=== PATIENT | female | born 1950 | race Two or more races ===

== ENCOUNTER 2020-05-07 10:05 | Outpatient (CLI) | payer MEDICARE, SELFPAY ==
--- NOTE | ~2020-05-07 | MM_ITS ---
EXAMINATION: MM screening andrea BI w anne HISTORY: Screening mammogram TECHNIQUE: Craniocaudal and mediolateral oblique 3-D tomosynthesis images were obtained and synthetic 2-D images were generated. CAD analysis was submitted and interpreted. COMPARISON: 03/19/2019, 03/14/2018, 02/07/2017 bilateral digital screening mammogram examinations BREAST PARENCHYMAL COMPOSITION: There are scattered areas of fibroglandular density. FINDINGS: There are scattered bilateral benign calcifications. There is no evidence of suspicious mas s, calcification, or architectural distortion to suggest malignancy in either breast. There has been no suspicious interval change. IMPRESSION: 1. No mammographic evidence of malignancy. 2. Recommend routine screening mammography in one year. BI-RADS Category 1: Negative Reviewed, dictated and finalized at location B. UP INSPECTOR
== END 2020-05-07 10:06 | disposition home or self-care (01) ==
LOC: ANHIMG 10:08
PROVIDERS: PCP Internal Medicine; Visit Provider Nurse Practitioner
DX: Z12.31 Encounter for screening mammogram for malignant neoplasm of breast (principal)
CPT/HCPCS: 77063; 77067

== ENCOUNTER 2021-12-16 14:44 | Outpatient (CLI) | payer MEDICARE, SELFPAY ==
--- NOTE | ~2021-12-16 | MM_ITS ---
EXAMINATION: MM screening andrea BI w anne HISTORY: Screening TECHNIQUE: Craniocaudal and mediolateral oblique 3-D tomosynthesis images were obtained and synthetic 2-D images were generated. CAD analysis was submitted and interpreted. COMPARISON: No prior mammogram is available for comparison at this institution. BREAST PARENCHYMAL COMPOSITION: There are scattered areas of fibroglandular density. FINDINGS: There is no evidence of suspicious mass, calcification, or architectural distortion to sugg est malignancy in either breast. There has been no suspicious interval change. IMPRESSION: 1. No mammographic evidence of malignancy. 2. Recommend routine screening mammography in one year. BI-RADS Category 1: Negative Reviewed, dictated and finalized at location A.
== END 2021-12-16 14:45 | disposition home or self-care (01) ==
PROVIDERS: PCP Internal Medicine; Visit Provider Obstetrics & Gynecology Gynecology
DX: Z12.31 Encounter for screening mammogram for malignant neoplasm of breast (principal)
CPT/HCPCS: 77063; 77067

== ENCOUNTER 2023-06-09 15:19 | Outpatient (CLI) | payer MEDICARE, SELFPAY ==
--- NOTE | ~2023-06-09 | MM_ITS ---
EXAMINATION: MM screening andrea BI w anne HISTORY: Screening mammogram TECHNIQUE: Craniocaudal and mediolateral oblique 3-D tomosynthesis images were obtained and synthetic 2-D images were generated. CAD analysis was submitted and interpreted. COMPARISON: 12/16/2021, 05/07/2020 bilateral screening mammogram examinations BREAST PARENCHYMAL COMPOSITION: The breasts are almost entirely fatty. FINDINGS: There is no evidence of suspicious mass, calcification, or architectural distortion to sugg est malignancy in either breast. There has been no suspicious interval change. IMPRESSION: 1. No mammographic evidence of malignancy. 2. Recommend routine screening mammography in one year. BI-RADS Category 1: Negative Reviewed, dictated and finalized at location A. MOBILE LIGHTS ASSEMBLER
--- NOTE | ~2023-06-09 | DEXA_ITS ---
Bone Density Report Name: LIZETH WALDEN Age: 72 Sex: Female Ethnicity: White Date of : 1950 Indication: postmenopausal; screening for osteoporosis; height loss; hysterectomy; Referring Provider: JACOB, GRACIELA Study: Bone densitometry was performed. Exam Date: June 09, 2023 Accession number: [id number] Bone Density: Region BMD T-score Z-score Classification AP Spine(L1, L2, L3) 1.129 1.0 3.2 Normal Femoral Neck (Left) 0.806 -0.4 1.5 Normal Total Hip (Left) 1.004 0.5 2.1 Normal Femoral Neck (Right) 0.804 -0.4 1.5 Normal Total Hip (Right) 0.941 0.0 1.6 Normal Total Hip Mean 0.972 0.3 1.9 Normal World Health Organization criteria for BMD impression classify patients as: Normal (T-score at or above -1.0), Osteopenia (T-score between -1.0 and -2.5), or Osteoporosis (T-score at or below -2.5). 10-year Fracture Risk: FRAX not reported because: All T-scores for Spine Total, Hip Total, Femoral Neck at or above -1.0 Previous Exams: Region Exam Age BMD T-score BMD Change BMD Change Date g/cm2 vs Baseline vs Previous AP Spine (L1-L3) 06/09/2023 72 1.129 1.0 0.066 (6.3%)# -0.017 (-1.5%) 02/07/2017 66 1.146 1.2 0.084 (7.9%)# 0.084 (7.9%)# 06/10/2011 60 1.062 0.4 Total Hip(Left) 06/09/2023 72 1.004 0.5 -0.061 (-5.7%) -0.050 (-4.7%) 02/07/2017 66 1.054 0.9 -0.011 (-1.1%) -0.011 (-1.1%) 06/10/2011 60 1.065 1.0 Total Hip(Right) 06/09/2023 72 0.941 0.0 -0.062 (-6.1%) -0.114 (-10.8% 02/07/2017 66 1.055 0.9 0.052 (5.2%)# 0.052 (5.2%)# 06/10/2011 60 1.002 0.5 *Denotes significance at 95% confidence level, LSC for AP Spine = 0.022 g/cm2, LSC for Total Hip = 0.027 g/cm2 # Denotes dissimilar scan types or analysis methods Clinical Information Provided by Patient: Has used the following medications: Fosamax (i.e. alendronate), Prolia (i.e. denosumab) Has the following medical conditions: Hysterectomy Patient maximum height was 62.0 Menopause Age: 46 Drinks caffeinated beverages Onset of menses at age 9 Number of children 4 Impression: The patient has normal bone mass. The BMD for the Total Hip(Left) decreased, changing by -4.7% since the last DXA exam. The BMD for the Total Hip(Right) decreased, changing by -10.8% since the last DXA exam. Discussion: BONE DENSITY IS ABOVE THE MINIMUM DESIRABLE LEVEL AT ALL SKELETAL SITES TESTED. This patient?s bone mineral den
== END 2023-06-09 15:20 | disposition home or self-care (01) ==
LOC: ANHIMG 15:20
PROVIDERS: PCP Nurse Practitioner; Visit Provider Nurse Practitioner
DX: Z12.31 Encounter for screening mammogram for malignant neoplasm of breast (principal); Z78.0 Asymptomatic menopausal state
CPT/HCPCS: 77063; 77067; 77080

== ENCOUNTER 2024-09-10 15:17 | Outpatient (CLI) | payer MEDICARE, SELFPAY ==
--- NOTE | ~2024-09-10 | MM_ITS ---
EXAMINATION: MM screening [facility] w [facility] HISTORY: Screening TECHNIQUE: Craniocaudal and mediolateral oblique 3-D tomosynthesis images were obtained and synthetic 2-D images were generated. CAD analysis was submitted and interpreted. COMPARISON: 06/09/2023 and dating back to 03/19/2019 BREAST PARENCHYMAL COMPOSITION: There are scattered areas of fibroglandular density. FINDINGS: Punctate calcifications are detected bilaterally, stable and benign in appearance. Stable parenchymal pattern without suspicious microcalcifications, architectural distortion, discrete masses or significant asymmetry. IMPRESSION: 1. No mammographic evidence of malignancy. 2. Recommend routine screening mammography in one year. BI-RADS Category 2: Benign finding(s). Reviewed, dictated and finalized at location A.
--- OUTSIDE RECORDS SUMMARY | 2024-09-10 18:08 | XMS_ITS | Encounter Summary ---
Author Organization [facility] Address [address] [place] [address] Care Team Providers Care Medical Receptionist Assistant Name Role Phone Dirk Bagley MD Primary Care Provider [phone] Speedy Fall MD Unavailable Norma Caputo Primary Care Provider Reason for Visit * Reason Onset Date Comments MEDICATION REFILL 12/21/2020 Encounter Details Date Type Department Care Team (Late st Contact Info) Description 12/21/2020 Refill [facility] [address] [place] [address], [place] [phone] Nhi Hairston MD [address] [place] [address] [place] [address] MEDICATION REFILL Social History Tobacco Use Types Packs/Day Years Used Date Smoking Tobacco: Never Smokeless Tobacco: Never Alcohol Use Standard Drinks/Week Comments Yes 1 (1 standard drink = 0.6 oz pur e alcohol) PHQ-2 Answer Date Recorded PHQ2 TOTAL SCORE 0 12/08/2020 Sex and Gender Information Value Date Recorded Sex Assigned at Not on file Gender Identity Not on file Sexual Orientation Not on file Travel History Travel Start Travel End [place] 08/03/2024 08/22/2024 COVID-19 Exposure Response Date Recorded In the last month, have you been in contact with someone who was confirmed or suspected to have Coronavirus / COVID-19? No / Unsure 11/28/2020 10:53 AM CDT documented as of this encounter Functional Status Functional Status Response Date of Assess ment Is person deaf or have serious hearing difficult y? No 09/04/2020 Is person blind or have serious difficulty seein g? No 09/04/2020 Does person have serious dif ficulty walking/climbing stairs? No 09/04/2020 Does person have difficulty dressing/bathing? No 09/04/2020 Does person have difficulty doing errands alone? No 09/04/2020 Cognitive Status Response Date of Assessm ent Does person have difficulty concentrating/remembering/making decisions? No 09/04/2020 documented as of this encounter Miscellaneous Notes * Telephone Encounter - Salima Storm - 12/23/2020 9:47 AM CDT Refill Request Aspen Yuan DONAVAN: 12.08.20Apr due: 04.20.21Apr scheduled: 04/20/2021 LRF: 7..21 Qty Disp: 180 # of refills: 1 Allergies: Allergies Allergen Reactions ??? Meperidine Nausea and/or Vomiting Reaction not listed. ??? Sulfa Drugs Urticaria ??? Hydroxychloroquine Sulfate Rash ??? Hymenoptera Venom Preparations Other Swell horribly until steroid ??? [place] Bark [Quercus Robur] Rhinitis ??? Adhesive Sensitivity Skin Reactions Vasquez my skin, takes my top skin off ??? Grass Extracts [Gramineae Pollens] Other Skin test ??? Mold Extract [Trichophyton] Other Skin test Pended Medication Order: Requested Prescriptions Pending Prescriptions Disp Refills ??? traMADol (ULTRAM) 50 MG tablet 180 tablet 1 Sig: documented in this encounter Plan of Treatment Upcoming Encounters Date Type Department Care Team (Late st Contact Info) Description 10/01/2024 11:40 AM CDT Office Visit [facility] - Rheumatology [address] [place] [address], [place] [phone] Gavin Thorne MD [facility] [place] [address] 03/19/2025 8:45 AM CDT Appointment [facility] [address] [place] [phone] Speedy Fall MD [address] [place] [phone] 03/19/2025 10:00 AM CDT Office Visit [facility] - [address] [place] [address] Speedy Fall MD [address] [place] [phone] documented as of this encounter Goals Goal Patient Goal Type Associated Problems Recent Progress Patient-Stated? Author Medication Management General On track( 025 9:22 AM CDT) No Lissett Thorne, DIANNA Note: Expected end date: Ongoing Interventions: Take all medications as prescribed Let your doctor know right away about any changes in your medications Make sure to request a refill of your medication at least one week prior to your last dose Safety General On track( 024 9:40 AM CDT) No Adri Heredia, RN Note: Expected end date: ongoing Interventions: Your nurse will assess your risk for falls/injury each visit documented as of this encounter Visit Diagnoses Diagnosis Psoriatic arthritis (HCC) Psoriatic arthropathy Arthralgia, unspecified joint documented in this encounter Care Teams Medical Receptionist Assistant Relationship Specialty Start Date End Date Dirk Bagley MD [address] [place] [address] PCP - General Family Medicine 02/08/23 03/05/24 Norma Caputo [address] [place] [address] PCP - General 03/06/24 Speedy Fall MD [address] [place] [address] Box Printing Machine Operator Gastroenterology 09/08/23 documented as of this encounter
--- OUTSIDE RECORDS SUMMARY | 2024-09-10 18:08 | XMS_ITS | Encounter Summary ---
Author Organization [facility] Address [address] [place] [address] Care Team Providers Care Rail Car Repairer Name Role Phone Malcolm Dugan MD Primary Care Provider [phone] Encounter Details Date Type Department Care Team (Late st Contact Info) Description 10/29/2002 Outpatient Historical [facility] (Adt Cardiology-[facility]) [address] [place] [address] Luis Mujica Social History Tobacco Use Types Packs/Day Years Used Date Smoking Tobacco: Never Assessed Comments Unknown Sex and Gender Information Value Date Recorded Sex Assigned at Not on file Legal Sex Female 3:11 AM MANAGER BODY Gender Identity Not on file Sexual Orientation Not on file documented as of this encounter Plan of Treatment Not on file documented as of this encounter Visit Diagnoses Not on filedocumented in this encounter Care Teams Rail Car Repairer Relationship Specialty Start Date End Date Malcolm Dugan MD [address] [place] [address] PCP - General 08/01/02 documented as of this encounter
--- OUTSIDE RECORDS SUMMARY | 2024-09-10 18:08 | XMS_ITS | Encounter Summary ---
Author Organization [facility] Address [address] [place] [address] Care Team Providers Care Can Bander Operator Name Role Phone Dirk Bagley MD Primary Care Provider Speedy Fall MD Unavailable [phone] Norma Caputo Primary Care Provider [phone] Reason for Visit * Reason Onset Date Comments MEDICATION REFILL 03/12/2020 Encounter Details Date Type Department Care Team (Late st Contact Info) Description 03/12/2020 Refill [facility] [address] [place] [address] Nhi Hairston MD [address] [place] [address] MEDICATION REFILL Social History Tobacco Use Types Packs/Day Years Used Date Smoking Tobacco: Never Smokeless Tobacco: Never Alcohol Use Standard Drinks/Week Comments Yes 7 (1 standard drink = 0.6 oz pur e alcohol) 1 oz of vodka a day Sex and Gender Information Value Date Recorded Sex Assigned at Not on file Gender Identity Not on file Sexual Orientation Not on file Travel History Travel Start Travel End [place] 08/03/2024 08/22/2024 documented as of this encounter Miscellaneous Notes * Telephone Encounter - Salima Storm - 03/12/2020 11:25 AM CDT Refill Request Aspen Yuan DONAVAN: 11.21.19 NOV due: 03.26.20 LRF: 02.11.20 Qty Disp: 180 tabs # of refills: 0 Allergies: Allergies Allergen Reactions ??? Meperidine Nausea and/or Vomiting Reaction not listed. ??? Sulfa Drugs Urticaria ??? Hydroxychloroquine Sulfate Rash ??? Hymenoptera Venom Preparations Other Swell horribly until steroid ??? [place] Bark [Quercus Robur] Rhinitis ??? Adhesive Sensitivity Skin Reactions Vasquez my skin, takes my top skin off ??? Grass Extracts [Gramineae Pollens] Other Skin test ??? Mold Extract [Trichophyton] Other Skin test Pended Medication Order: Requested Prescriptions Pending Prescriptions Disp Refills ??? traMADol (ULTRAM) 50 MG tablet 180 tablet 0 documented in this encounter Plan of Treatment Upcoming Encounters Date Type Department Care Team (Late st Contact Info) Description 10/01/2024 11:40 AM CDT Office Visit [facility] - Rheumatology [address] [place] [phone] Gavin Thorne MD [address] [place] [phone] 03/19/2025 8:45 AM CDT Appointment [facility] [address] [place] [phone] Speedy Fall MD [address] [place] [phone] 03/19/2025 10:00 AM CDT Office Visit [facility] [address] [place] [address] [place] [phone] Speedy Fall MD [address] [place] [phone] documented as of this encounter Goals Goal Patient Goal Type Associated Problems Recent Progress Patient-Stated? Author Medication Management General On track( 025 9:22 AM CDT) Lissett Langston, RN Note: Expected end date: Ongoing Interventions: Take all medications as prescribed Let your doctor know right away about any changes in your medications Make sure to request a refill of your medication at least one week prior to your last dose documented as of this encounter Visit Diagnoses Diagnosis Psoriatic arthritis (HCC) Psoriatic arthropathy Arthralgia, unspecified joint documented in this encounter Care Teams Can Bander Operator Relationship Specialty Start Date End Date Dirk Bagley MD [address] [place] [address] PCP - General Family Medicine 02/08/23 03/05/24 Norma [facility] [place] [address] PCP - General 03/06/24 Speedy Fall MD [address] [place] [address] Manager Of Housekeeping Gastroenterology 09/08/23 documented as of this encounter
--- OUTSIDE RECORDS SUMMARY | 2024-09-10 18:08 | XMS_ITS | Encounter Summary ---
Author Organization [facility] Address [address] [facility] [place] [address] Care Team Providers Care Mat Man Name Role Phone Dirk Bagley MD Primary Care Provider [phone] Speedy Fall MD Unavailable [phone] Norma Caputo Primary Care Provider [phone] Reason for Visit * Reason Onset Date Comments MEDICATION REFILL 02/26/2021 Encounter Details Date Type Department Care Team (Late st Contact Info) Description 02/26/2021 Refill [facility] [address] [place] [address], [place] [phone] Nhi Hairston MD [address] [place] [address] [place] [address] MEDICATION REFILL Social History Tobacco Use Types [...] file Travel History Travel Start Travel End [place] 08/03/2024 08/22/2024 COVID-19 Exposure Response Date Recorded In the last month, have you been in contact with someone who was confirmed or suspected to have Coronavirus / COVID-19? No / Unsure 01/30/2021 9:05 AM CDT documented as of this encounter Functional Status Functional Status Response Date of Assess ment Is person deaf or have serious hearing difficult y? No 02/26/2021 Is person blind or have serious difficulty seein g? No 02/26/2021 Does person have serious dif ficulty walking/climbing stairs? No 02/26/2021 Does person have difficulty dressing/bathing? No 02/26/2021 Does person have difficulty doing errands alone? No 02/26/2021 Cognitive Status Response Date of Assessm ent Does person have difficulty concentrating/remembering/making decisions? No 02/26/2021 documented as of this encounter Miscellaneous Notes * Telephone Encounter - Salima Storm - 02/27/2021 11:38 AM CDT Refill Request Aspen Yuan DONAVAN: 12/08/2020Apr due: 04/20/2021Apr scheduled: 04/20/2021 LRF: 02/27/2021 Qty Disp: 4 mL # of refills: 2 Allergies: Allergies Allergen Reactions ??? Meperidine Nausea and/or Vomiting Reaction not listed. ??? Sulfa Drugs Urticaria ??? Hydroxychloroquine Sulfate Rash ??? Hymenoptera Venom Preparations Other Swell horribly until steroid ??? [place] Bark [Quercus Robur] Rhinitis ??? Adhesive Sensitivity Skin Reactions Vasquez my skin, takes my top skin off ??? Grass Extracts [Gramineae Pollens] Other Skin test ??? Mold Extract [Trichophyton] Other Skin test Pended Medication Order: Requested Prescriptions Pending Prescriptions Disp Refills ??? Secukinumab, 300 MG Dose, (COSENTYX, 300 MG DOSE,) 150 MG/ML SOSY 2 mL 2 ??? Secukinumab, 300 MG Dose, (COSENTYX, 300 MG DOSE,) 150 MG/ML SOSY 4 mL 2 documented in this encounter Plan of Treatment Upcoming Encounters Date Type Department Care Team (Late st Contact Info) Description 10/01/2024 11:40 AM CDT Office Visit [facility] - Rheumatology [address] [place] [address], [place] [address] Gavin Thorne MD [address] [place] [phone] 03/19/2025 8:45 AM CDT Appointment [facility] [address] [place] [phone] Speedy Fall MD [address] [place] [phone] 03/19/2025 10:00 AM CDT Office Visit [facility] - GI [address] [place] [address], [place] [phone] Speedy Fall MD [address] [place] [phone] documented as of this encounter Goals Goal Patient Goal Type Associated Problems Recent Progress Patient-Stated? Author Medication Management General On track( 025 9:22 AM CDT) No Lissett Thorne, RN Note: Expected end date: Ongoing Interventions: Take all medications as prescribed Let your doctor know right away about any changes in your medications Make sure to request a refill of your medication at least one week prior to your last dose Safety General On track( 024 9:40 AM CDT) No Adri Heredia, DIANNA Note: Expected end date: ongoing Interventions: Your nurse will assess your risk for falls/injury each visit documented as of this encounter Visit Diagnoses Not on filedocumented in this encounter Care Teams Mat Man Relationship Specialty Start Date End Date Dirk Bagley MD [address] [place] [address] PCP - General Family Medicine 02/08/23 03/05/24 Norma Caputo [address] [place] [address] PCP - General 03/06/24 Speedy Fall MD [address] [place] [phone] Community Education Coordinator Gastroenterology 09/08/23 documented as of this encounter
--- OUTSIDE RECORDS SUMMARY | 2024-09-10 18:08 | XMS_ITS | Encounter Summary ---
Author Organization [facility] Health Address [address] [facility] [place] [address] Care Team Providers Care Shingle Bolt Cutter Name Role Phone Speedy Fall MD Unavailable [phone] Norma Caputo Primary Care Provider [phone] Encounter Details Date Type Department Care Team (Late st Contact Info) Description 08/31/2024 Orders Only [facility] [address] [facility], [place] [address] Speedy Fall MD [address] [place] [address] Cirrhosis of liver without ascites, unspecified hepatic cirrhosis type Social History Tobacco Use Types Packs/Day Years Used Date Smoking Tobacco: Never Smokeless Tobacco: Never Alcohol Use Standard Drinks/Week Comments Not Currently 1 (1 standard drink = 0.6 oz pur e alcohol) occas PHQ-2 Answer Date Recorded PHQ2 TOTAL SCORE 0 01/06/2023 Sex and Gender Information Value Date Recorded Sex Assigned at Not on file Gender Identity Not on file Sexual Orientation Not on file Travel History Travel Start Travel End [place] 08/03/2024 08/22/2024 documented as of this encounter Functional Status [...] No 02/26/2021 documented as of this encounter Plan of Treatment Upcoming Encounters Date Type Department Care Team (Late st Contact Info) Description 10/01/2024 11:40 AM CDT Office Visit [facility] - Rheumatology [address] [place] [phone] Gavin Thorne MD [address] [place] [phone] 03/19/2025 8:45 AM CDT Appointment [facility] [address] [place] [phone] Speedy Fall MD [address] [place] [phone] 03/19/2025 10:00 AM CDT Office Visit [facility] [address] [place] [phone] Speedy Fall MD [address] [place] [phone] documented as of this encounter Goals Goal [...] track( 024 9:40 AM CDT) No Adri Heredia RN Note: Expected end date: ongoing Interventions: Your nurse will assess your risk for falls/injury each visit documented as of this encounter Procedures Procedure Name Priority Date/Time Associated Diagnosis Comments ALPHA FETOPROTEIN BLOOD TUMOR MARKER Routine 08/31/2024 12:23 PM CDT Cirrhosis of liver without ascites, unspecified hepatic cirrhosis type CBC W AUTO DIFFERENTIAL Routine 08/31/2024 12:23 PM CDT Cirrhosis of liver without ascites, unspecified hepatic cirrhosis type COMPREHENSIVE METABOLIC PANEL Routine 08/31/2024 12:23 PM CDT Cirrhosis of liver without ascites, unspecified hepatic cirrhosis type BILIRUBIN DIRECT Routine 08/31/2024 12:2 3 PM CDT Cirrhosis of liver without ascites, unspecified hepatic cirrhosis type PT-INR Routine 08/31/2024 12:21 PM CDT Cirrhosis of liver without ascites, unspecified hepatic cirrhosis type documented in this encounter Results * ALPHA FETOPROTEIN BLOOD TUMOR MARKER (08/31/2024 12:23 PM CDT) Alpha-Fetoprotei n Tumor Marker 4.1 ng/mL [facility] Comment: Reference Range: <6.1 The use of AFP as a tumor marker in females is not recommended. This test was performed using the Ashlyn Lavaca chemiluminescent method. Values obtained from different assay methods cannot be used interchangeably. AFP levels, regardless of value, should not be interpreted as absolute evidence of the presence or absence of disease. REPORT COMMENT: FASTING:NO Test Performed at: [facility] [place] [address] [place] [id number] SCHUYLER GOMEZ Blood BLOOD SPECIMEN / Unknown 08/31/2024 12:23 PM CDT 08/31/2024 12:23 PM CDT Speedy Fall MD LAB - CHEMISTRY [place]DE [place] [address] [address] * BILIRUBIN DIRECT (08/31/2024 12:23 PM CDT) Pathologist [facility] Bilirubin Direct 0.1 < OR = 0.2 mg/dL [facility] Comment: Test Performed at: [email or web address] [address] CALLIE VENTURA MD Blood BLOOD SPECIMEN / Unknown 08/31/2024 12:23 PM CDT 08/31/2024 12:23 PM CDT Speedy Fall MD LAB - CHEMISTRY ORDE [place] Performing Organization Address City/[facility] Co de Phone Number [address] [address] * (ABNORMAL) COMPREHENSIVE METABOLIC PANEL (08/31/2024 12:23 PM CDT) Pathologist [facility] Glucose 255(H) 65 - 139 mg/dL [facility] Comment: Non-fasting reference interval BUN 25 7 - 25 mg/dL [facility] Creatinine 1.16(H) 0.60 - 1.00 mg/dL [facility] eGFR by Cystatin C 50(L) > OR = 60 mL/min/1. 73m2 [facility] BUN/Creatinine Ratio 22 6 - 22 (calc) [facility] Sodium 137 135 - 146 mmol/L [facility] Potassium 4.5 3.5 - 5.3 mmol/L [facility] Chloride 102 98 - 110 mmol/L [facility] CO2 27 20 - 32 mmol/L [facility] Calcium 10.0 8.6 - 10.4 mg/dL [facility] Protein Total 7.0 6.1 - 8.1 g/dL [facility] Albumin 4.5 3.6 - 5.1 g/dL [facility] Globulin Total 2.5 1.9 - 3.7 g/dL (calc) [facility] Albumin/Globulin Ratio 1.8 1.0 - 2.5 (calc) [facility] Bilirubin Total 0.6 0.2 - 1.2 mg/dL [facility] Alkaline Phosphatase 54 37 - 153 U/L [facility] AST 36(H) 10 - 35 U/L [facility] ALT 29 6 - 29 U/L [facility] Comment: Test Performed at: [email or web address] [address] CALLIE VENTURA MD Blood BLOOD SPECIMEN / Unknown 08/31/2024 12:23 PM CDT 08/31/2024 12:23 PM CDT Speedy Fall MD LAB - CHEMISTRY JOESPH [facility] Organization Address City/State/ZIP Co de Phone Number [address] [address] * (ABNORMAL) CBC WITH DIFFERENTIAL (08/31/2024 12:23 PM CDT) White Blood Cell Count 4.4 3.8 - 10.8 Thousand/ uL [facility] RBC 4.13 3.80 - 5.10 Million/u L [facility] Hemoglobin 13.8 11.7 - 15.5 g/dL [facility] Hematocrit 42.6 35.0 - 45.0 % [facility] MCV 103.1(H) 80.0 - 100.0 fL [facility] MCH 33.4(H) 27.0 - 33.0 pg [facility] MCHC 32.4 32.0 - 36.0 g/dL [facility] Comment: For adults, a slight decrease in the calculated MCHC value (in the range of 30 to 32 g/dL) is most likely not clinically significant; however, it should be interpreted with caution in correlation with other red cell parameters and the patient's clinical condition. RDW 12.3 11.0 - 15.0 % [facility] Platelet Count 193 140 - 400 Thousand/ uL [facility] MPV 10.5 7.5 - 12.5 fL [facility] Neutrophil Absolute 2156 1500 - 7800 cells/uL [facility] Lymphocytes Absolute 1615 850 - 3900 cells/uL [facility] Absolute Monocytes 370 200 - 950 cells/uL [facility] Eosinophils Absolute 229 15 - 500 cells/uL [facility] Basophils Absolute 31 0 - 200 cells/uL [facility] Granulocytes % 49 % [facility] Lymphocytes % 36.7 % [facility] Monocytes % 8.4 % [facility] Eosinophils % 5.2 % [facility] Basophils % 0.7 % [facility] Comment: Test Performed at: [email or web address] [address] CALLIE VENTURA MD Blood BLOOD SPECIMEN / Unknown 08/31/2024 12:23 PM CDT 08/31/2024 12:23 PM CDT Speedy Fall MD LAB - HEMATOLOGY ORD ERABLES Performing Organization Address [facility] Co de Phone Number [address] [address] * (ABNORMAL) PT-INR (08/31/2024 12:21 PM CDT) INR 1.1 [facility] Comment: Reference Range 0.9-1.1 Moderate-intensity Warfarin Therapy 2.0-3.0 Higher-intensity Warfarin Therapy 3.0-4.0 PT 12.1(H) 9.0 - 11.5 sec [facility] Comment: For additional information, please refer to http://education.TeaMobi/faq/OXD681 (This link is being provided for informational/ educational purposes only.) REPORT COMMENT: FASTING:NO Test Performed at: [email or web address] [address] CALLIE VENTURA MD Blood BLOOD SPECIMEN / Unknown 08/31/2024 12:21 PM CDT 08/31/2024 12:22 PM CDT Speedy Fall MD LAB - COAGULATION OR DERABLES Performing Organization Address [facility] Co de Phone Number [address] [address] documented in this encounter Visit Diagnoses Diagnosis Cirrhosis of liver without ascites, unspecified hepatic cirrhosis type (HCC) documented in this encounter Care Teams Shingle Bolt Cutter Relationship Specialty Start Date End Date Norma Caputo [facility] [place] [address] PCP - General 03/06/24 Speedy Fall MD [address] [place] [address] Lithograph Press Feeder Gastroenterology 09/08/23 documented as of this encounter
--- OUTSIDE RECORDS SUMMARY | 2024-09-10 18:08 | XMS_ITS | Encounter Summary ---
Author Organization [facility] Health Address [address] [facility] [place] [address] Care Team Providers Care Family Support Specialist Name Role Phone Dirk Bagley MD Primary Care Provider [phone] Speedy Fall MD Unavailable [phone] Norma Caputo Primary Care Provider [phone] Reason for Visit * Reason Onset Date Comments MEDICATION REFILL 10/27/2023 Encounter Details Date Type Department Care Team (Late st Contact Info) Description 10/27/2023 Refill [facility] - Rheumatology [address] [place] [address], [place] [address] Gavin Thorne MD [address] [place] [phone] MEDICATION REFILL Social History Tobacco Use Types [...] file Travel History Travel Start Travel End [place] 08/03/2024 08/22/2024 documented as of this encounter [...] encounter Miscellaneous Notes * Telephone Encounter - Issa Costa LPN - 10/28/2023 9:54 AM CDT Refill Request Aspen Yuan DONAVAN: 09/15/2023 NOV due: NOV scheduled: 03/05/2024 LRF: 01/06/2023 Qty Disp: 360 # of refills: 3 Allergies: Allergies Allergen Reactions Meperidine Nausea and/or Vomiting Reaction not listed. Sulfa Drugs Urticaria Hydroxychloroquine Sulfate Rash Hymenoptera Venom Preparations Other Swell horribly until steroid [place] Bark [Quercus Robur] Rhinitis Adhesive Sensitivity Skin Reactions Vasquez my skin, takes my top skin off Grass Extracts [Gramineae Pollens] Other Skin test Mold Extract [Trichophyton] Other Skin test Pended Medication Order: Requested Prescriptions Pending Prescriptions Disp Refills cetirizine (ZyrTEC) 10 MG tablet 360 tablet 3 Sig: Take 2 (two) tablets by mouth 2 times daily \ documented in this encounter Plan of Treatment Upcoming Encounters Date Type Department Care Team (Late st Contact Info) Description 10/01/2024 11:40 AM CDT Office Visit [facility] - Rheumatology [address] [place] [address], [facility] [place] [phone] Gavin Thorne MD [address] [place] [phone] 03/19/2025 8:45 AM CDT Appointment [facility] [address] [place] [address] Speedy Fall MD [address] [place] [phone] 03/19/2025 10:00 AM CDT Office Visit [facility] - [address] [facility], [place] [address] Speedy Fall MD [address] [place] [phone] documented as of this encounter Goals [...] on filedocumented in this encounter Care Teams Family Support Specialist Relationship Specialty Start Date End Date Dirk Bagley MD [address] [place] [address] PCP - General Family Medicine 02/08/23 03/05/24 Norma Caputo [address] [place] [address] PCP - General 03/06/24 [place] [address] [place] [phone] Orthopedic Surgeon Gastroenterology 09/08/23 documented as of this encounter
--- OUTSIDE RECORDS SUMMARY | 2024-09-10 18:08 | XMS_ITS | Encounter Summary ---
Author Organization [facility] Health Address [address] [place] [address] Care Team Providers Care Washery Boss Name Role Phone Dirk Bagley MD Primary Care Provider [phone] Speedy Fall MD Unavailable [phone] Norma Caputo Primary Care Provider [phone] Reason for Visit * Reason Onset Date Comments MEDICATION REFILL 02/12/2021 Encounter Details Date Type Department Care Team (Late st Contact Info) Description 02/12/2021 Refill [facility] [address] [place] [address], [place] [phone] Nhi Hairston MD [address] [place] [address] [place] [address] MEDICATION REFILL Social History Tobacco Use Types [...] file Travel History Travel Start Travel End [place] 08/03/2024 08/22/2024 COVID-19 Exposure Response Date Recorded [...] * Telephone Encounter - Salima Storm - 02/16/2021 8:58 AM CDT Refill Request Aspen Yuan DONAVAN: 12.08.20Apr due: 04.20.21Apr scheduled: 04/20/2021 LRF: 02.12.21 Qty Disp: 180 # of refills: 1 Allergies: Allergies Allergen Reactions ??? Meperidine Nausea and/or Vomiting Reaction not listed. ??? Sulfa Drugs Urticaria ??? Hydroxychloroquine Sulfate Rash ??? Hymenoptera Venom Preparations Other Swell horribly until steroid ??? [place] Bark [Quercus Robur] Rhinitis ??? Adhesive Sensitivity Skin Reactions Vasquez my skin, takes my top skin off ??? Grass Extracts [Gramineae Pollens] Other Skin test ??? Mold Extract [Trichophyton] Other Skin test Pended Medication Order: Requested Prescriptions Pending Prescriptions Disp Refills ??? traMADol (ULTRAM) 50 MG tablet 90 tablet 2 Sig: Take 1 (one) tablet by mouth every 6 hours as needed TAKE 1 TO 2 TABLETS BY MOUTH THREE TIMES DAILY NEEDED documented in this encounter Plan of Treatment Upcoming Encounters Date Type Department Care Team (Late st Contact Info) Description 10/01/2024 11:40 AM CDT Office Visit [facility] - Rheumatology [address] [place] [address], [place] [phone] Gavin Thorne MD [address] [place] [phone] 03/19/2025 8:45 AM CDT Appointment [facility] [address] [place] [phone] Speedy Fall MD [address] [place] [phone] 03/19/2025 10:00 AM CDT Office Visit [facility] [address] [place] [address], [place] [phone] Speedy Fall MD [address] [place] [phone] documented as of this encounter Goals [...] joint documented in this encounter Care Teams Washery Boss Relationship Specialty Start Date End Date Dirk Bagley MD [address] [place] [address] PCP - General Family Medicine 02/08/23 03/05/24 Norma Caputo [address] [place] [address] PCP - General 03/06/24 Speedy Fall MD [address] [place] [address] Biofuels Operations Manager Gastroenterology 09/08/23 documented as of this encounter
--- OUTSIDE RECORDS SUMMARY | 2024-09-10 18:08 | XMS_ITS | Encounter Summary ---
Author Organization [facility] Address [address] [place] [address] Care Team Providers Care Manager Army Name Role Phone Malcolm Dugan MD Primary Care Provider [phone] Encounter Details Date Type Department Care Team (Latest Contact Info) Description 07/17/2002 Outpatient Historical [facility], [address] [place] [address] [place] [address] POLYCYTHEMIA VERA (CMS/HCC) (Primary Dx) Social History Tobacco Use Types Packs/Day Years Used Date Smoking Tobacco: Never Assessed Comments Unknown Sex and Gender Information Value Date Recorded Sex Assigned at Not on file Legal Sex Female 3:11 AM LOGISTICS ACCOUNT MANAGER Gender Identity Not on file Sexual Orientation Not on file documented as of this encounter Plan of Treatment Not on file documented as of this encounter Visit Diagnoses Diagnosis Polycythemia vera(238.4) (CMS/HCC)- Primary Polycythemia vera documented in this encounter Care Teams Manager Army Relationship Specialty Start Date End Date Malcolm Dugan MD [address] [address] PCP - General 08/01/02 documented as of this encounter
--- OUTSIDE RECORDS SUMMARY | 2024-09-10 18:08 | XMS_ITS | Encounter Summary ---
Author Organization [facility] Health Address [address] [facility] [address] Care Team Providers Care Feed Project Engineer Name Role Phone Dirk Bagley MD Primary Care Provider [phone] Speedy Fall MD Unavailable [phone] Norma Caputo Primary Care Provider [phone] Reason for Visit * Reason Onset Date Comments MEDICATION REFILL 04/06/2022 Encounter Details Date Type Department Care Team (Late st Contact Info) Description 04/06/2022 Refill [facility] [address] [facility], [place] [phone] Mychart, Generic Provider MEDICATION REFILL Social History Tobacco Use Types [...] file Travel History Travel Start Travel End [place] 08/03/2024 08/22/2024 documented as of this encounter [...] Description 10/01/2024 11:40 AM CDT Office Visit [facility] - Rheumatology [address] [place] [phone] Gavin Thorne MD [address] [place] [phone] 03/19/2025 8:45 AM CDT Appointment [facility] [address] [place] [phone] Speedy Fall MD [address] [place] [phone] 03/19/2025 10:00 AM CDT Office Visit [facility] [address] [place] [address] [place] [phone] Speedy Fall MD [address] [place] [phone] documented as of this encounter Goals Goal [...] On track( 024 9:40 AM CDT) No Kyleep, Adri R, RN Note: Expected end date: ongoing Interventions: Your nurse will assess your risk for falls/injury each visit documented as of this encounter Visit Diagnoses Diagnosis Fibromyalgia Mylagia and myositis, unspecified documented in this encounter Care Teams Feed Project Engineer Relationship Specialty Start Date End Date Dirk Bagley MD [address] [place] [address] PCP - General Family Medicine 02/08/23 03/05/24 Norma Caputo [address] [place] [address] PCP - General 03/06/24 Speedy Fall MD [address] [place] [address] Plate Maker Zinc Gastroenterology 09/08/23 documented as of this encounter
--- OUTSIDE RECORDS SUMMARY | 2024-09-10 18:08 | XMS_ITS | Encounter Summary ---
Author Organization [facility] Health Address [address] [facility] [place] [address] Care Team Providers Care Oxygen System Tester Name Role Phone Dirk Bagley MD Primary Care Provider [phone] Speedy Fall MD Unavailable Norma Caputo Primary Care Provider [phone] Reason for Visit * Reason Onset Date Comments MEDICATION REFILL 06/16/2021 Encounter Details Date Type Department Care Team (Late st Contact Info) Description 06/16/2021 Refill [facility] [address] [place] [address], [place] [phone] Nhi Hairston MD [address] [place] [address] [place] [address] MEDICATION REFILL Social History Tobacco Use Types [...] file Travel History Travel Start Travel End [place] 08/03/2024 08/22/2024 documented as of this encounter [...] * Telephone Encounter - Salima Storm - 06/16/2021 4:16 PM CST Refill Request Aspen Yuan DONAVAN: 04.20.21Apr due: 08.18.21Apr scheduled: 08/18/2021 LRF: 06.16.21 Qty Disp: 180 # of refills: 1 Allergies: Allergies Allergen Reactions ??? Meperidine Nausea and/or Vomiting Reaction not listed. ??? Sulfa Drugs Urticaria ??? Hydroxychloroquine Sulfate Rash ??? Hymenoptera Venom Preparations Other Swell horribly until steroid ??? [place] Bark [Quercus Robur] Rhinitis ??? Adhesive Sensitivity Skin Reactions Vasquez my skin, takes my top skin off ??? Grass Extracts [Gramineae Pollens] Other Skin test ??? Mold Extract [Trichophyton] Other Skin test Pended Medication Order: Requested Prescriptions Pending Prescriptions Disp Refills ??? traMADol (ULTRAM) 50 MG tablet 180 tablet 1 CAL RECORD ADMINISTRATOR documented in this encounter Plan of Treatment Upcoming Encounters Date Type Department Care Team (Late st Contact Info) Description 10/01/2024 11:40 AM CDT Office Visit [facility] - Rheumatology [address] [place] [address], [place] [address] Gavin Thorne MD [address] [place] [phone] 03/19/2025 8:45 AM CDT Appointment [facility] [address] [place] [address] Speedy Fall MD [address] [place] [phone] 03/19/2025 10:00 AM CDT Office Visit [facility] - [address] [facility], [place] [address] Speedy Fall MD [address] [place] [address] documented as of this encounter Goals [...] joint documented in this encounter Care Teams Oxygen System Tester Relationship Specialty Start Date End Date Dirk Bagley MD [address] [place] [address] PCP - General Family Medicine 02/08/23 03/05/24 Norma Caputo [address] [place] [address] PCP - General 03/06/24 Speedy Fall MD [address] [place] [address] Director Of Public Relations Gastroenterology 09/08/23 documented as of this encounter
--- OUTSIDE RECORDS SUMMARY | 2024-09-10 18:08 | XMS_ITS | Encounter Summary ---
Author Organization [facility] Health Address [address] [facility] [place] [address] Care Team Providers Care Rn Correctional Name Role Phone Dirk Bagley MD Primary Care Provider Speedy Fall MD Unavailable Norma Caputo Primary Care Provider [phone] Reason for Visit * Reason Onset Date Comments MEDICATION REFILL 11/05/2021 Encounter Details Date Type Department Care Team (Late st Contact Info) Description 11/05/2021 Refill [facility] [address] [place] [address], [place] [phone] Nhi Hairston MD [address] [place] [address] [place] [address] MEDICATION REFILL Social History Tobacco Use Types [...] file Travel History Travel Start Travel End [place] 08/03/2024 08/22/2024 documented as of this encounter [...] * Telephone Encounter - Salima Storm - 11/05/2021 3:21 PM CDT Its been put in * Telephone Encounter - Salima Storm - 11/05/2021 3:19 PM CDT Refill Request Aspen Yuan DONAVAN: APR due: NOV scheduled: 12/29/2021 LRF: Drey Disp: # of refills: Allergies: Allergies Allergen Reactions Meperidine Nausea and/or Vomiting Reaction not listed. Sulfa Drugs Urticaria Hydroxychloroquine Sulfate Rash Hymenoptera Venom Preparations Other Swell horribly until steroid [place] Bark [Quercus Robur] Rhinitis Adhesive Sensitivity Skin Reactions Vasquez my skin, takes my top skin off Grass Extracts [Gramineae Pollens] Other Skin test Mold Extract [Trichophyton] Other Skin test Pended Medication Order: Requested Prescriptions Pending Prescriptions Disp Refills traMADol (ULTRAM) 50 MG tablet 180 tablet 1 Sig: Take 1 (one) tablet by mouth 3 times daily as needed documented in this encounter Plan of Treatment Upcoming Encounters Date Type Department Care Team (Late st Contact Info) Description 10/01/2024 11:40 AM CDT Office Visit [facility] - Rheumatology [address] [place] [address], [place] [phone] Gavin Thorne MD [address] [place] [phone] 03/19/2025 8:45 AM CDT Appointment [facility] [address] [place] [phone] Speedy Fall MD [facility] [place] [phone] 03/19/2025 10:00 AM CDT Office Visit [facility] - [address] [facility], [place] [address] Speedy Fall MD [address] [place] [phone] documented as of this encounter Goals [...] on filedocumented in this encounter Care Teams Rn Correctional Relationship Specialty Start Date End Date Dirk Bagley MD [address] [place] [address] PCP - General Family Medicine 02/08/23 03/05/24 Norma Caputo [address] [place] [address] PCP - General 03/06/24 Speedy Fall MD [address] [place] [phone] Nailhead Puncher Gastroenterology 09/08/23 documented as of this encounter
--- OUTSIDE RECORDS SUMMARY | 2024-09-10 18:08 | XMS_ITS | Encounter Summary ---
Author Organization [facility] Health Address [address] [place] [address] Care Team Providers Care Line Up Machine Operator Name Role Phone Speedy Fall MD Unavailable [phone] Norma Caputo Primary Care Provider [phone] Encounter Details Date Type Department Care Team (Late st Contact Info) Description 03/20/2024 Lab Requisition [facility] - DermPath Lab [address] [facility], [place] [phone] Sylvester Smalls MD [facility] DERMATOLOGY [address] [place] [phone] Neoplasm of uncertain behavior of skin Social History Tobacco Use Types Packs/Day Years [...] file Travel History Travel Start Travel End [place] 08/03/2024 08/22/2024 documented as of this encounter [...] Office Visit [facility] - Rheumatology [address] [place] [phone] Gavin Thorne MD [address] [place] [phone] 03/19/2025 8:45 AM CDT Appointment [facility] [address] [place] [phone] Speedy Fall MD [address] [place] [phone] 03/19/2025 10:00 AM CDT Office Visit [facility] - GI [address] [place] [phone] Speedy Fall MD [address] [place] [phone] documented as of this encounter Goals Goal [...] General On track( 024 9:40 AM CDT) Adri San RN Note: Expected end date: ongoing Interventions: Your nurse will assess your risk for falls/injury each visit documented as of this encounter Procedures Procedure Name Priority Date/Time Associated Diagnosis Comments DERMATOPATHOLOGY Routine 03/20/2024 12:0 0 AM CDT Neoplasm of uncertain behavior of skin documented in this encounter Results * DERMATOPATHOLOGY (03/20/2024 12:00 AM CDT) Case Report Dermatopathology Report Case: [id number] Authorizing Provider: Sylvester Smalls MD Collected: 03/20/2024 12:00 AM Ordering Location: [facility] - Received: 03/21/2024 01:11 PM DermPath Lab Pathologist: Rosa Mcclellan MD Specimen: Skin, right superior upper back 1:17 PM CDT DERMATOPATHOLOGY LABORATORY Final Diagnosis Specimen A. SKIN, right superior upper back: ACTINIC KERATOSIS (L57.0) DERMAL SCAR (L90.5) 1:17 PM CDT DERMATOPATHOLOGY LABORATORY Clinical History Actinic Keratosis 1:17 PM CDT DERMATOPATHOLOGY LABORATORY Gross Description Specimen A: Received is one formalin filled container labeled with the patient's name and designated right superior upper back. The specimen consists of a shave biopsy measuring 9x9x2 mm. Jar 0. 1:17 PM CDT DERMATOPATHOLOGY LABORATORY Microscopic Description Specimen A. SKIN, right superior upper back: There is focal parakeratosis. The lower half of the epidermis shows disorderly maturation of keratinocytes with nuclear pleomorphism. There are fibroblasts and collagen bundles oriented parallel to the skin surface with elongated blood vessels, some of which are oriented perpendicular to the skin surface. 1:17 PM CDT DERMATOPATHOLOGY LABORATORY Disclaimer An external and internal positive and negative controls are appropriate for the histochemical, immunohistochemical and immunofluorescence stain(s) in this case (if any), except where stated explicitly. The performance characteristics of the stain(s) cited in this report were developed and its performance characteristic determined by the Dermatopathology Laboratory at [facility], directed by Dr. Florentino Owusu. These tests need not be, and therefore are not, approved by the [place] Food and Drug Administration. The tests are used for clinical purposes. Billing Codes Specimen Charges Stain Charges 70946 1 4 1:17 PM CDT DERMATOPATHOLOGY LABORATORY Embedded Images 1:17 PM CDT DERMATOPATHOLOGY LABORATORY Pathology/Cytolog y TISSUE SPECIMEN FROM SKIN / Unknown 03/20/2024 03/21/2024 1:11 PM CDT Sylvester Smalls MD LAB - PATHOLOGY/CYTO LOGY ORDERABLES DERMATOPATHOLOGY LABORATORY [facility] - Department of Dermatology [facility] [address] [facility] 3rd [place] [address], [facility] [phone] documented in this encounter Visit Diagnoses Diagnosis Neoplasm of uncertain behavior of skin documented in this encounter Care Teams Line Up Machine Operator Relationship Specialty Start Date End Date Norma Caputo [address] [place] [address] PCP - General 03/06/24 Speedy Fall MD [address] [place] [phone] Consulting Services Associate Gastroenterology 09/08/23 documented as of this encounter
--- OUTSIDE RECORDS SUMMARY | 2024-09-10 18:08 | XMS_ITS | Encounter Summary ---
Author Organization [facility] Health Address [address] [place] [address] Care Team Providers Care Motorcoach Driver Name Role Phone Dirk Bagley MD Primary Care Provider [phone] Speedy Fall MD Unavailable [phone] Norma Caputo Primary Care Provider [phone] Reason for Visit * Reason Onset Date Comments MEDICATION REFILL 02/11/2020 Encounter Details Date Type Department Care Team (Late st Contact Info) Description 02/11/2020 Refill [facility] [address] [place] [address] Nhi Hairston MD [address] [place] [address] MEDICATION REFILL Social History Tobacco Use Types [...] file Travel History Travel Start Travel End [place] 08/03/2024 08/22/2024 documented as of this encounter Miscellaneous Notes * Telephone Encounter - EmeterioSalima - 02/11/2020 10:09 AM CDT Refill Request [facility] 11.21.19Apr03.26.20 Allergies: Allergies Allergen Reactions ??? Meperidine Nausea and/or Vomiting Reaction not listed. ??? Sulfa Drugs Urticaria ??? Hydroxychloroquine Sulfate Rash ??? Hymenoptera Venom Preparations Other Swell horribly until steroid ??? [place] Bark [Quercus Robur] Rhinitis ??? Adhesive Sensitivity [...] Office Visit [facility] - Rheumatology [address] [place] [address] [place] [address] Gavin Thorne MD [address] [place] [phone] 03/19/2025 8:45 AM CDT Appointment [facility] [address] [place] [phone] Speedy Fall MD [address] [place] [phone] 03/19/2025 10:00 AM CDT Office Visit [facility] - GI [address] [place] [address] [place] [address] Speedy Fall MD [address] [place] [phone] documented as of this encounter Goals Goal Patient Goal Type Associated Problems Recent Progress Patient-Stated? Author Medication Management General On track( 025 9:22 AM CDT) Lissett Langston RN Note: Expected end date: Ongoing Interventions: [...] joint documented in this encounter Care Teams Motorcoach Driver Relationship Specialty Start Date End Date Dirk Bagley MD [address] [place] [address] PCP - General Family Medicine 02/08/23 03/05/24 Norma Caputo [address] [place] [address] PCP - General 03/06/24 Speedy Fall MD [address] [place] [address] Power Barker Operator Gastroenterology 09/08/23 documented as of this encounter
--- OUTSIDE RECORDS SUMMARY | 2024-09-10 18:08 | XMS_ITS | Encounter Summary ---
Author Organization [facility] Address [address] [place] [address] Care Team Providers Care Engineering Research Manager Name Role Phone Malcolm Dugan MD Primary Care Provider [phone] Encounter Details Date Type Department Care Team (Late st Contact Info) Description 08/04/2002 Outpatient Historical [place] [address] [place] [address] POLYCYTHEMIA VERA (CMS/HCC) (Primary Dx) Social History Tobacco Use Types Packs/Day Years Used Date Smoking Tobacco: Never Assessed Comments Unknown Sex and Gender Information Value Date Recorded Sex Assigned at Not on file Legal Sex Female 3:11 AM COST MANAGER Gender Identity Not on file Sexual Orientation Not on file documented as of this encounter Plan of Treatment Not on file documented as of this encounter Visit Diagnoses Diagnosis Polycythemia vera(238.4) (CMS/HCC)- Primary Polycythemia vera documented in this encounter Care Teams Engineering Research Manager Relationship Specialty Start Date End Date Malcolm Dugan MD [address] [facility] [address] [place] [address] PCP - General 08/01/02 documented as of this encounter
--- OUTSIDE RECORDS SUMMARY | 2024-09-10 18:08 | XMS_ITS | Encounter Summary ---
Author Organization [facility] Health Address [address] [place] [address] Care Team Providers Care Boat Washer Name Role Phone Dirk Bagley MD Primary Care Provider Speedy Fall MD Unavailable Norma Caputo Primary Care Provider [phone] Reason for Visit * Reason Onset Date Comments MEDICATION REFILL 12/05/2023 Encounter Details Date Type Department Care Team (Late st Contact Info) Description 12/05/2023 Refill [facility] - Rheumatology [address] [place] [address], [place] [address] Gavin Thorne MD [address] [place] [phone] MEDICATION REFILL Social History Tobacco Use [...] file Travel History Travel Start Travel End [place] 08/03/2024 08/22/2024 documented as of this encounter [...] Description 10/01/2024 11:40 AM CDT Office Visit [facility] - Rheumatology [address] [place] [phone] Gavin Thorne MD [address] [place] [phone] 03/19/2025 8:45 AM CDT Appointment [facility] [address] [place] [phone] Speedy Fall MD [address] [place] [phone] 03/19/2025 10:00 AM CDT Office Visit [facility] - GI [address] [place] [phone] Speedy Fall MD [address] [place] [phone] documented as of this encounter Goals Goal [...] On track( 024 9:40 AM CDT) Adri San, DIANNA Note: Expected end date: ongoing Interventions: Your nurse will assess your risk for falls/injury each visit documented as of this encounter Visit Diagnoses Not on filedocumented in this encounter Care Teams Boat Washer Relationship Specialty Start Date End Date Dirk Bagley MD [address] [place] [address] PCP - General Family Medicine 02/08/23 03/05/24 Norma Caputo [address] [place] [address] PCP - General 03/06/24 Speedy Fall MD [address] [place] [address] Tool Honing Machine Set Up Operator Gastroenterology 09/08/23 documented as of this encounter
--- OUTSIDE RECORDS SUMMARY | 2024-09-10 18:08 | XMS_ITS | Encounter Summary ---
Author Organization [facility] Address [address] [place] [address] Care Team Providers Care Office Agent Name Role Phone Malcolm Dugan MD Primary Care Provider [phone] Encounter Details Date Type Department Care Team (Latest Contact Info) Description 08/01/2002 Outpatient Historical [facility] [place] [address] [place] [address] ABNL BLOOD EXAM FINDING OTHER SPEC (Primary Dx) Social History Tobacco Use Types Packs/Day Years Used Date Smoking Tobacco: Never Assessed Comments Unknown Sex and Gender Information Value Date Recorded Sex Assigned at Not on file Legal Sex Female 3:11 AM LAV CREWMAN Gender Identity Not on file Sexual Orientation Not on file documented as of this encounter Plan of Treatment Not on file documented as of this encounter Visit Diagnoses Diagnosis Other nonspecific findings on examination of blood(790.99)- Primary Other nonspecific findings on examination of blood documented in this encounter Care Teams Office Agent Relationship Specialty Start Date End Date Malcolm Dugan MD [address] [address] PCP - General 08/01/02 documented as of this encounter
--- OUTSIDE RECORDS SUMMARY | 2024-09-10 18:08 | XMS_ITS | Encounter Summary ---
Author Organization [facility] Health Address [address] [place] [address] Care Team Providers Care Plumbing Engineer Name Role Phone Dirk Bagley MD Primary Care Provider [phone] Speedy Fall MD Unavailable [phone] Norma Caputo Primary Care Provider [phone] Encounter Details Date Type Department Care Team (Late st Contact Info) Description 09/28/2023 Lab Requisition [facility] - DermPath Lab [address] [facility], [place] [phone] Sylvester Smalls MD [facility] DERMATOLOGY [address] [place] [phone] Neoplasm of uncertain behavior of skin [...] file Travel History Travel Start Travel End [place] 08/03/2024 08/22/2024 documented as of this encounter [...] Description 10/01/2024 11:40 AM CDT [facility] [address] [place] [phone] Gavin Thorne MD [address] [place] [phone] 03/19/2025 8:45 AM CDT Appointment [facility] [address] [place] [phone] Speedy Fall MD [address] [place] [phone] 03/19/2025 10:00 AM CDT Office Visit [facility] - GI [address] [place] [address] [place] [phone] Speedy Fall MD [address] [place] [phone] documented as of this encounter Goals Goal [...] track( 024 9:40 AM CDT) Adri San, RN Note: Expected end date: ongoing Interventions: Your nurse will assess your risk for falls/injury each visit documented as of this encounter Procedures Procedure Name Priority Date/Time Associated Diagnosis Comments DERMATOPATHOLOGY Routine 09/28/2023 3:33 AM CDT Neoplasm of uncertain behavior of skin documented in this encounter Results * DERMATOPATHOLOGY (09/28/2023 3:33 AM CDT) Case Report Dermatopathology Report Case: [id number] Authorizing Provider: ySlvester Smalls MD Collected: 09/28/2023 03:33 AM Ordering Location: [facility] - Received: 09/29/2023 02:22 PM DermPath Lab Pathologist: Eve Mcclellan MD Specimens: A) - Skin, left central malar cheek B) - Skin, right superior upper back 1:38 PM CDT DERMATOPATHOLOGY LABORATORY Final Diagnosis Specimen A. SKIN, left central malar cheek: SQUAMOUS CELL CARCINOMA IN SITU, PRESENT AT THE BASE OF THE SPECIMEN (D04.39) (see microscopic description and comment) Specimen B. SKIN, right superior upper back: ACTINIC KERATOSIS (L57.0) 1:38 PM CDT DERMATOPATHOLOGY LABORATORY Clinical History A-B: Squamous Cell Carcinoma in situ vs Actinic Keratosis 1:38 PM CDT DERMATOPATHOLOGY LABORATORY Gross Description Specimen A: Received is one formalin filled container labeled with the patient's name and designated left central malar cheek. The specimen consists of a shave biopsy measuring 3x3x1 mm. Jar 0. Specimen B: Received is one formalin filled container labeled with the patient's name and designated right superior upper back. The specimen consists of a shave biopsy measuring 9x5x1 mm. Jar 0. 1:38 PM CDT DERMATOPATHOLOGY LABORATORY Microscopic Description Specimen A. SKIN, left central malar cheek: The epidermis shows parakeratosis, full thickness disorderly maturation of keratinocytes, mitoses at different levels, and dyskeratotic cells. The lesion extends to the base of the biopsy. COMMENT: An invasive squamous cell carcinoma cannot be ruled out. Specimen B. SKIN, right superior upper back: There is focal parakeratosis. The lower half of the epidermis shows disorderly maturation of keratinocytes with nuclear pleomorphism. 4 1:38 PM CDT DERMATOPATHOLOGY LABORATORY Disclaimer An external and internal positive and negative controls are appropriate for the histochemical, immunohistochemical and immunofluorescence stain(s) in this case (if any), except where stated explicitly. The performance characteristics of the stain(s) cited in this report were developed and its performance characteristic determined by the Dermatopathology Laboratory at [facility], directed by Dr. Florentino Owusu. These tests need not be, and therefore are not, approved by the [place] Food and Drug Administration. The tests are used for clinical purposes. Billing Codes Specimen Charges Stain Charges 57939 49887 1 1 4 1:38 PM CDT DERMATOPATHOLOGY LABORATORY Embedded Images 1:38 PM CDT DERMATOPATHOLOGY LABORATORY Pathology/Cytology TISSUE SPECIMEN FROM SKIN / Unknown 09/28/2023 3:33 AM CDT 09/29/2023 2:22 PM CDT Miscellaneous samples (specimen) TISSUE SPECIMEN FROM SKIN / Unknown 09/28/2023 3:33 AM CDT 09/29/2023 2:22 PM CDT Sylvester Smalls MD LAB - PATHOLOGY/CYTO LOGY ORDERABLES DERMATOPATHOLOGY LABORATORY [facility] - Department of Dermatology [address], [address] [phone] documented in this encounter Visit Diagnoses Diagnosis Neoplasm of uncertain behavior of skin documented in this encounter Care Teams Plumbing Engineer Relationship Specialty Start Date End Date Dirk Bagley MD [address] [place] [address] PCP - General Family Medicine 02/08/23 03/05/24 Norma Caputo [address] [place] [address] PCP - General 03/06/24 Speedy Fall MD [address] [place] [phone] Real Time Analyst Gastroenterology 09/08/23 documented as of this encounter
--- OUTSIDE RECORDS SUMMARY | 2024-09-10 18:08 | XMS_ITS | CONTINUITY OF CARE DOCUMENT ---
Author Name dannacaraterrance Address Unknown Organization [facility] Address [address] [place] [address] Phone [phone] Care Team Providers Care Canteen Manager Name Role Phone Wallace PINEDA, See Unavailable MARICHUY AGUILAR MD Unavailable JOANA ALANIS DO Unavailable INSURANCE PROVIDERS Payer name Policy type / Coverage type Roslyn red alliance party ID [facility] Blue [facility] [id number]
--- OUTSIDE RECORDS SUMMARY | 2024-09-10 18:08 | XMS_ITS | Encounter Summary ---
Author Organization [facility] Health Address [address] [facility] [place] [address] Care Team Providers Care Parts Room Associate Name Role Phone Dirk Bagley MD Primary Care Provider Speedy Fall MD Unavailable [phone] Norma Caputo Primary Care Provider [phone] Reason for Visit * Reason Onset Date Comments MEDICATION REFILL 10/07/2020 Encounter Details Date Type Department Care Team (Late st Contact Info) Description 10/07/2020 Refill [facility] [address] [place] [address] Nhi Hairston MD [address] [address] MEDICATION REFILL Social History Tobacco Use Types Packs/Day Years Used Date Smoking Tobacco: Never Smokeless Tobacco: Never Alcohol Use Standard Drinks/Week Comments Yes 1 (1 standard drink = 0.6 oz pur e alcohol) Sex and Gender Information Value Date Recorded Sex Assigned at Not on file Gender Identity Not on file Sexual Orientation Not on file Travel History Travel Start Travel End [place] 08/03/2024 08/22/2024 documented as of this encounter [...] encounter Miscellaneous Notes * Telephone Encounter - Juanjose Chavarria - 10/07/2020 1:47 PM CDT Refill Request [facility] Yuan DONAVAN: 07/01/20 NOV scheduled: 12/08/2020 LRF: 07/14/20 Qty Disp: 180 # of refills: 2 Allergies: Allergies Allergen Reactions ??? Meperidine Nausea and/or Vomiting Reaction not listed. ??? Sulfa Drugs Urticaria ??? Hydroxychloroquine Sulfate Rash ??? Hymenoptera Venom Preparations Other Swell horribly until steroid ??? [place] Bark [Quercus Robur] Rhinitis ??? Adhesive Sensitivity Skin Reactions Vasquez my skin, takes my top skin off ??? Grass Extracts [Gramineae Pollens] Other Skin test ??? Mold Extract [Trichophyton] Other Skin test Pended Medication Order: Requested Prescriptions Pending Prescriptions Disp Refills ??? gabapentin (NEURONTIN) 300 MG capsule 180 capsule 2 Sig: Take 3 (three) capsules by mouth 2 times daily documented in this encounter Plan of Treatment Upcoming Encounters Date Type Department Care Team (Late st Contact Info) Description 10/01/2024 11:40 AM CDT Office Visit [facility] - Rheumatology [address] [place] [address], [facility] [place] [address] Gavin Thorne MD [address] [place] [phone] 03/19/2025 8:45 AM CDT Appointment [facility] [address] [place] [phone] Speedy Fall MD [facility] [place] [phone] 03/19/2025 10:00 AM CDT Office Visit [facility] - GI [address] [facility], [place] [address] Speedy Fall MD [address] [place] [phone] documented as of this encounter Goals Goal [...] as of this encounter Visit Diagnoses Diagnosis Fibromyalgia- Primary Mylagia and myositis, unspecified documented in this encounter Care Teams Parts Room Associate Relationship Specialty Start Date End Date Dirk Bagley MD [address] [place] [address] PCP - General Family Medicine 02/08/23 03/05/24 Norma Caputo [facility] [place] [address] PCP - General 03/06/24 [place] [address] [place] [phone] Mushroom Cultivator Gastroenterology 09/08/23 documented as of this encounter
--- OUTSIDE RECORDS SUMMARY | 2024-09-10 18:08 | XMS_ITS | Clinical Summary ---
Author Organization [facility] Address [address] [facility] [address] Attn: Epic Prelude ADT YAZ SHETH [address] Care Team Providers Care Linseed Oil Order Filler Name Role Phone Malcolm Dugan MD Primary Care Provider [phone] Social History Tobacco Use Types Packs/Day Years Used Date Smoking Tobacco: Never Assessed Comments Unknown Sex and Gender Information Value Date Recorded Sex Assigned at Not on file Legal Sex Female 3:11 AM SPIN TABLE OPERATOR Gender Identity Not on file Sexual Orientation Not on file Plan of Treatment Health Maintenance Due Date Last Done Comments DTAP/TDAP/TD VACCINES (1 - Tdap) 1970 BREAST CANCER SCREENING 1991 COLORECTAL SCREENING 1996 Colorectal Cancer Screening 1996 FIT-DNA Q 3 years 1996 FIT/FOBT Q 1 year 1996 Flex Sig/CT Colonography Q 5 years 1996 PNEUMOCOCCAL VACCINE 50+ YEARS (1 of 1 - PCV) 07/21/19 02 ZOSTER VACCINE (1 of 2) 2001 OSTEOPOROSIS SCREENING 2016 INFLUENZA VACCINE (#1) 2024 RSV VACCINE (60+ or ) (1 - 1-dose 75+ series) 2026 Care Teams Linseed Oil Order Filler Relationship Specialty Start Date End Date Malcolm Dguan MD [address] [facility] [address] [place] [address] PCP - General 08/01/02
--- OUTSIDE RECORDS SUMMARY | 2024-09-10 18:08 | XMS_ITS | Clinical Summary ---
Author Organization [facility] Address [address] [place] [address] Care Team Providers Care Recenterer Name Role Phone Speedy Fall MD Unavailable [phone] Norma Caputo Primary Care Provider [phone] Source Comments [facility],non-owned Affiliates and Associated Physician Practices is amultiple site organization consisting of ambulatory clinics and hospital sitesin [place], [place], [place] and [place]. This disclosure is being madepursuant to the Care Everywhere program and may not contain all information available regarding this patient. Last updated 18.[facility] Allergies Active Allergy Reactions Criticality Noted Date Comments Adhesive Sensitivity Skin Reactions Low 02/07/2014 Vasquez my skin, takes my top skin off Gramineae Pollens Other Low 01/24/2019 Skin test Hydroxychloroquine Sulfate Rash Medium 2 Hymenoptera Venom Preparations Other 12/13/2019 Swell horribly until steroid Meperidine Nausea and/or Vomiting Medium 01/27/2012 Reaction not listed. Trichophyton Other Low 01/24/2019 Skin test Quercus Robur Rhinitis 12/13/2019 Sulfa Drugs Urticaria Medium 01/27/2012 Medications * Be aware that medications may not be up to date on this document. Alwaysverify current medications with the patient. Medication Sig Dispensed Refills Start Date End Date Status Omaha-3 Fatty Acids (FISH OIL) 1200 MG Take 1,200 mg by mouth once daily Active simvastatin (ZOCOR) 10 MG tablet Take 1 (one) tablet by mouth at bedtime Active amLODIPine (NORVASC) 5 MG tablet Take 1 (one) tablet by mouth once daily Active Lutein 40 MG Take 1 tablet by mouth once daily Active losartan (COZAAR) 25 MG tablet Take 1 (one) tablet by mouth once daily Take 1 per day 04/12/2016 Active montelukast (SINGULAIR) 10 MG tablet Take 1 (one) tablet by mouth once daily 05/31/2017 Active Magnesium Hydroxide (MAGNESIA PO) Take 500 mg by mouth 2 times daily Active Osphena 60 MG tablet Take 1 (one) tablet by mouth once daily 10/21/2022 Active omeprazole (PriLOSEC) 40 MG capsule Take 1 (one) capsule by mouth 2 times daily, before breakfast and supper 180 capsule 3 01/06/2023 Active cetirizine (ZyrTEC) 10 MG tablet Take 2 (two) tablets by mouth 2 times daily 360 tablet 3 01/06/2023 Active gabapentin (Neurontin) 300 MG capsuleIndicatio ns:Fibromyalgia Take 3 (three) capsules by mouth 2 times daily 540 capsule 1 01/06/2023 Active diclofenac sodium (Voltaren) 1 % gelIndications:O steoarthritis Apply 2 (two) g to affected area 4 times daily Apply to affected joints 3x or 4x daily as needed Reasons: Joint Damage causing Pain and Loss of Function 350 g 3 09/15/2023 Active upadacitinib ER (Rinvoq) 15 MG tabletIndication s:Psoriatic Arthritis Take 1 (one) tablet by mouth once daily Reasons: Psoriasis associated with Arthritis 90 tablet 3 09/15/2023 Active ramelteon (Rozerem) 8 MG tabletIndication s:Chronic insomnia TAKE 1 TABLET BY MOUTH EVERY NIGHT NEEDED FOR INSOMNIA 90 tablet 3 01/30/2024 Active traMADol (Ultram) 50 MG tabletIndication s:Chronic Pain Take 2 (two) tablets by mouth nightly as needed for Pain Reasons: Chronic Pain 60 tablet 5 03/05/2024 Active fenofibrate (Lofibra) 160 MG tablet Take 1 (one) tablet by mouth once daily 07/14/2024 Active Ozempic, 0.25 or 0.5 MG/DOSE, 2 MG/3ML SOPN 5 mg by Subcutaneous Infusion route every 7 days 07/18/2024 Active levothyroxine (Synthroid) 112 MCG tablet Take 1 (one) tablet by mouth once daily 07/14/2024 Active metoprolol succinate XL 24hr (Toprol XL) 25 MG tablet Take 1 (one) tablet by mouth every morning 08/03/2024 Active VITAMIN D PO Active Coenzyme Q10 (COQ10 PO) Active levothyroxine (Synthroid) 100 MCG tablet Take 1 (one) tablet by mouth once daily 06/28/2023 5 Discontinue d(List Clean-Up) fenofibrate (Lofibra) 54 MG tablet Take 1 (one) tablet by mouth once daily 04/30/2023 5 Discontinue d(List Clean-Up) Rybelsus 14 MG tablet Take 1 (one) tablet by mouth once daily 06/30/2023 5 Discontinue d(List Clean-Up) Active Problems Problem Noted Date Diagnosed Date Encounter for long-term (cur rent) use of high-risk medication 04/26/2018 Encounter for medication monitoring 04/26/2018 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 02/06/2018 Psoriatic arthritis 02/06/2018 Essential hypertension 02/06/2018 Opacities of both lungs present on chest x-ray Encounters Date Type Department Care Team Description 09/04/2024 9:30 AM CDT Office Visit [facility] [place] [address] Speedy Fall MD Cirrhosis of liver without ascites, unspecified hepatic cirrhosis type (Primary Dx); Class 2 obesity; Encounter for screening for other viral diseases 09/04/2024 8:41 AM CDT - 09/04/2024 11:59 PM CDT Hospital Encounter [facility] [address] [place] [address] Speedy Fall MD Discharge Disposition: Home or Self Care 09/04/2024 Travel 08/31/2024 Orders Only [facility] - GI [address] [facility] [place] [address] Speedy Fall MD Cirrhosis of liver without ascites, unspecified hepatic cirrhosis type from Last 3 Months Immunizations Name Administration Dates Next Due Covid Moderna primary monova lent 12+ yr 0.5mL 08/07/2020 INFLUENZA VACCINE 02/16/2022,02/18/2020,03/20/20 INFLUENZA VACCINE, HIGH-DOSE , QUADR. (FLUZONE HIGH-DOSE QUADRIVALENT; 65Y+), 0.7 ML (HD-IIV4) 02/21/2020,03/07/2019,03/19/2018 PNEUMOCOCCAL PPSV23 01/24/2018,01/25/2004 Pneumococcal Pcv13 Conj 01/24/2017 Family History Medical History Relation Name Comments Diabetes - Type 2 Brother 1 Edu Other - Cardiac Brother 1 Edu Asthma Daughter Allergies - Food Father Alzheimer's Disease Father Other - Cardiac Father Other - Cardiac Maternal Grandfather Diabetes - Type 2 Maternal Grandmother Arthritis - Rheumatoid Mother Other - Pulmonary/Lung Mother tuber culosis Heart Failure Sister 1 Criss Other - Neurologic Sister 2 [place] side of vicky paralyzed and very painful Relation Name Status Comments Brother 1 Edu Alive Brother 2 Malcolm Alive Daughter Alive Father Maternal Grandfather Maternal Grandmother Mother Paternal Grandfather Paternal Grandmother Sister 1 Criss Alive Sister 2 Dara Alive Social History Tobacco Use Types Packs/Day Years Used Date Smoking Tobacco: Never Smokeless Tobacco: Never Tobacco Cessation:Counseling Given: Not Answered Alcohol Use Standard Drinks/Week Comments Not Currently 1 (1 standard drink = 0.6 oz pur e alcohol) occas PHQ-2 Answer Date Recorded PHQ2 TOTAL SCORE 0 01/06/2023 Sex and Gender Information Value Date Recorded Sex Assigned at Not on file Gender Identity Not on file Sexual Orientation Not on file Travel History Travel Start Travel End [place] 08/03/2024 08/22/2024 Last Filed Vital Signs Vital Sign Reading Time Taken Comments Blood Pressure 140/66 09/04/2024 9:24 AM CDT Pulse 75 09/04/2024 9:24 AM CDT Temperature 36.8 C (98.2 F) 09/04/2024 9:24 AM CDT Respiratory Rate 16 03/06/2024 9:39 AM CDT Oxygen Saturation 97% 09/04/2024 9:24 AM CDT Inhaled Oxygen Concentration 21% 02/22/2018 4 :10 PM CDT Weight 80.7 kg (178 lb) 09/04/2024 9:24 AM CDT Height 157.5 cm (5' 2 ) 09/04/2024 9:24 AM CDT Body Mass Index 32.56 09/04/2024 9:24 AM CDT Plan of Treatment Upcoming Encounters Date Type Department Care Team (Late st Contact Info) Description 10/01/2024 11:40 AM CDT Office Visit [facility] - Rheumatology [address] [place] [address] [place] [phone] Gavin Thorne MD [address] [place] [phone] 03/19/2025 8:45 AM CDT Appointment [facility] [address] [place] [phone] Speedy Fall MD [address] [place] [phone] 03/19/2025 10:00 AM CDT Office Visit [facility] - GI [address] [place] [phone] Speedy Fall MD [address] [place] [phone] Health Maintenance Due Date Last Done Comments BONE DENSITY TESTING 1950 COLOGUARD (AGES 45-75) - COLON CA SCREENING 1950 CT COLONOGRAPHY - COLON CA SCREENING 1950 FIT - COLON CA SCREENING 1950 FLEX SIG - COLON CA SCREENING 1950 MAMMOGRAM 1950 Opioid Medication Agreement - Annual 1950 DTAP/TDAP/TD VACCINES (1 - Tdap) 1970 ZOSTER VACCINE (1 of 2) 1970 HEPATITIS B VACCINE (1 of 3 - Risk 3-dose series) 2011 Respiratory Syncytial Virus (RSV) Vaccine Pt: or over 60 yrs (1 - Risk 60-74 years 1-dose series) 2011 Opioid Medication Urine Drug Screening 06/07/2018 06/07/2017 COVID-19 VACCINE ( season) 2024 03/21/2022, 11/18/2021, 07/16/2021, Additional history exists INFLUENZA VACCINE (#1) 2024 , 02/16/2022, 03/16/2021, Additional history exists DEPRESSION SCREENING 06/20/2024 01/06/2023 MEDICARE AWV CALENDAR YEAR 2024 SCREENING FOR DIABETES 09/01/2027 , 03/23/2024, 08/18/2023, Additional history exists COLON MONITORING 02/26/2031 02/26/2021, 02/26/2021 COLONOSCOPY - COLON CA SCREENING 02/26/2031 02/26/2021, 02/26/2021 Colorectal Cancer Screening 02/26/2031 PNEUMOCOCCAL VACCINE 50+ Completed 018, 01/24/2017, 01/25/2004 HEPATITIS C SCREENING Completed 02/14/2023 HIB VACCINE Aged Out No longer eligi ble based on patient's age to complete this topic HPV VACCINE Aged Out No longer eligi ble based on patient's age to complete this topic MENINGOCOCCAL (Group B) VACCINE SHARED DECISION-MAKING Aged Out No longer eligible based on patient's age to complete this topic MENINGOCOCCAL GROUPS A/C/Y/W VACCINE Aged Out No longer eligible based on patient's age to complete this topic Goals Goal Patient Goal Type Associated Problems [...] assess your risk for falls/injury each visit Medical Devices Implanted Type Area Quick Sketch Artist Device Identifier Shelf Expiration Date Model / Serial / Lot Sys Ureth Supp Jose Lynx Adv Spbc Implanted:Qty: 1 on 08/04/2021 by Valorie Zavaleta MD at [facility] [place] [facility] [place]A: Bladder [employer] Scimed 09/28/2021 [id number] / / [id number] Procedures Procedure Name Priority Date/Time Associated Diagnosis Comments US ABDOMEN LIMITED Routine 09/04/2024 9: 07 AM CDT Cirrhosis of liver without ascites, unspecified hepatic cirrhosis type ALPHA FETOPROTEIN BLOOD TUMOR MARKER Routine 08/31/2024 [...] liver without ascites, unspecified hepatic cirrhosis type HEPATITIS C AB W/RFLX TO HCV RNA QN PCR 02/14/2023 11:33 AM CDT ENDOSCOPY, COLON, SCREENING Routine 02/26/2021 8:15 AM CDT PAIN MANAGEMENT UR PNL W/ RFLX CONFIRM Routine 06/07/2017 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 US-1 Negative. Repeat surveillance US in 6 months. Cirrhotic morphology of the liver. REFERENCE: US LI-RADS categories: US Category: US 1 - Negative: No evidence of hepatocellular carcinoma (HCC). US 2 - Subthreshold: Observation detected that may warrant short-interval US surveillance. Observation<10 mm in diameter, not definitely benign. US 3 - Positive: Observation detected that may warrant multi-phase contrast-enhanced imaging. Observation >/= 10 mm in diameter or new thrombus in vein. Visualization Score: A. No or minimal limitations: Limitations, if any, are unlikely to meaningfully affect sensitivity. B. Moderate limitations: Limitations may obscure small masses. C. Severe limitations: Limitations significantly lower sensitivity for focal liver lesions. Report dictated by Ramón Sparks MD (radiology transcriptionist) I, Jimmy Gomez MD have personally reviewed and interpreted this examination/study. > Interpreting Provider: Jimmy Gomez MD on 09/04/2024 12:14 PM Narrative 09/04/2024 12:14 PM CDT PROCEDURE: US ABDOMEN LIMITED, DATE/TIME OF EXAM: 09/04/2024 9:08 AM, LOCATION [facility] INDICATION: K74.60: Cirrhosis of liver without ascites, unspecified hepatic cirrhosis type (HCC) ADDITIONAL CLINICAL INFORMATION: Ordering Provider Reason For Exam: Technologist Note: Additional: COMPARISON: None. Findings Liver Visualization Score: Severe limitations in liver visualization Liver Morphology: The liver has a coarse echotexture and nodular surface. Liver Observations: None. Main Portal Vein: Color Doppler evaluation demonstrates patency of the main portal vein. Hepatic Veins: Color Doppler evaluation demonstrates patency of the hepatic veins. Bile Ducts: The common bile duct is nondilated, measuring 2 mm. No intrahepatic or extrahepatic biliary dilation. Gallbladder: The gallbladder is absent.. Ascites: No ascites is present. Spleen: The spleen measures 10.4 cm in length. Pancreas: The visible pancreas is normal in echogenicity. Right Kidney: The right kidney measures 11.0 cm in length. Limited views of the right kidney reveal no evidence of nephrolithiasis or hydronephrosis. No discrete mass identified. Procedure Note Jimmy Gomez MD - 09/04/2024 PROCEDURE: US ABDOMEN LIMITED, DATE/TIME OF EXAM: 09/04/2024 9:08 AM, LOCATION [facility] INDICATION: K74.60: Cirrhosis of liver without ascites, unspecified hepaticcirrhosis type (HCC) ADDITIONAL CLINICAL INFORMATION: Ordering Provider Reason For Exam: Technologist Note: Additional: COMPARISON: None. Findings Liver Visualization Score: Severe limitations in liver visualization Liver Morphology: The liver has a coarse echotexture and nodular surface. Liver Observations: None. Main Portal Vein: Color Doppler evaluation demonstrates patency of the main portal vein. Hepatic Veins: Color Doppler evaluation demonstrates patency of the hepatic veins. Bile Ducts: The common bile duct is nondilated, measuring 2 mm. No intrahepatic or extrahepatic biliary dilation. Gallbladder: The gallbladder is absent.. Ascites: No ascites is present. Spleen: The spleen measures 10.4 cm in length. Pancreas: The visible pancreas is normal in echogenicity. Right Kidney: The right kidney measures 11.0 cm in length. Limited views of the right kidney reveal no evidence of nephrolithiasis or hydronephrosis. No discrete mass identified. Impression: Liver Visualization Score C: Severe limitations. US-1 Negative. Repeat surveillance US in 6 months. Cirrhotic morphology of the liver. REFERENCE: US LI-RADS categories: US Category: US 1 - Negative: No evidence of hepatocellular carcinoma (HCC). US 2 - Subthreshold: Observation detected that may warrant short-interval US surveillance. Observation<10 mm in diameter, not definitely benign. US 3 - Positive: Observation detected that may warrant multi-phase contrast-enhanced imaging. Observation >/= 10 mm in diameter or new thrombus in vein. Visualization Score: A. No or minimal limitations: Limitations, if any, are unlikely to meaningfully affect sensitivity. B. Moderate limitations: Limitations may obscure small masses. C. Severe limitations: Limitations significantly lower sensitivityfor focal liver lesions. Report dictated by Ramón Sparks MD (radiology transcriptionist) I, Jimmy Gomez MD have personally reviewed and interpreted this examination/study. > Interpreting Provider: Jimmy Gomez MD on 512:14 PM Speedy Fall MD US ORDERABLES * ALPHA FETOPROTEIN BLOOD TUMOR MARKER (08/31/2024 12:23 PM CDT) [facility] Alpha-Fetoprotei n Tumor Marker 4.1 ng/mL [facility] Comment: Reference Range: <6.1 The use of AFP as a tumor marker in females is not recommended. This test was performed using the Ashlyn Tarun chemiluminescent method. Values obtained from different assay methods cannot be used interchangeably. AFP levels, regardless of value, should not be interpreted as absolute evidence of the presence or absence of disease. REPORT COMMENT: FASTING:NO Test Performed at: [facility] [address] [address] SCHUYLER GOMEZ Blood BLOOD SPECIMEN / Unknown 08/31/2024 12:23 PM CDT 08/31/2024 12:23 PM CDT Speedy Fall MD LAB - CHEMISTRY [facility] Organization Address City/State/ZIP Co de Phone Number [facility] [address] [place] [address] * (ABNORMAL) CBC WITH DIFFERENTIAL (08/31/2024 12:23 PM CDT) [facility] White Blood Cell Count 4.4 3.8 - [...] 0.7 % [facility] Comment: Test Performed at: [facility] [address] [place] [address] CALLIE VENTURA MD Blood BLOOD SPECIMEN / Unknown 08/31/2024 12:23 PM CDT 08/31/2024 12:23 PM CDT Speedy Fall MD LAB - HEMATOLOGY ORD ERABLES [address] [address] * (ABNORMAL) COMPREHENSIVE METABOLIC PANEL (08/31/2024 12:23 PM CDT) Glucose 255(H) 65 - 139 mg/dL [facility] [...] 29 U/L [facility] Comment: Test Performed at: [facility] [address] CALLIE VENTURA MD Blood BLOOD SPECIMEN / Unknown 08/31/2024 12:23 PM CDT 08/31/2024 12:23 PM CDT Speedy Fall MD LAB - CHEMISTRY [facility] Performing Organization Address [facility] Co de Phone Number [address] [address] * BILIRUBIN DIRECT (08/31/2024 12:23 PM CDT) Bilirubin Direct 0.1 < OR = 0.2 mg/dL [facility] Comment: Test Performed at: [facility] [address] CALLIE VENTURA MD Blood BLOOD SPECIMEN / Unknown 08/31/2024 12:23 PM CDT 08/31/2024 12:23 PM CDT Speedy Fall MD LAB - CHEMISTRY [facility] Performing Organization Address [facility] Co de Phone Number [address] [address] * (ABNORMAL) PT-INR (08/31/2024 12:21 PM CDT) INR 1.1 [facility] Comment: Reference Range 0.9-1.1 Moderate-intensity Warfarin Therapy 2.0-3.0 Higher-intensity Warfarin Therapy 3.0-4.0 PT 12.1(H) 9.0 - 11.5 sec [facility] Comment: For additional information, please refer to http://education.SOASTA.bizk.it/faq/GBI707 (This link is being provided for informational/ educational purposes only.) REPORT COMMENT: FASTING:NO Test Performed at: [facility] [address] CALLIE VENTURA MD Blood BLOOD SPECIMEN / Unknown 08/31/2024 12:21 PM CDT 08/31/2024 12:22 PM CDT Speedy Fall MD LAB - COAGULATION OR DERABLES Performing Organization Address [facility] Co de Phone Number [facility] [address] [place] [address] * HEPATITIS C AB W/RFLX TO HCV RNA QN PCR (02/14/2023 11:33 AM CDT) Hepatitis C Antibody NON-REACTI VE NON-REACT [facility] Comment: HCV antibody was non-reactive. There is no laboratory evidence of HCV infection. In most cases, no further action is required. However, if recent HCV exposure is suspected, a test for HCV RNA (test code 25513) is suggested. For additional information please refer to http://education.[employer] Sciences/faq/QYI68n0 (This link is being provided for informational/ educational purposes only.) Test Performed at: [facility] [address] [place] [address] CALLIE VENTURA MD 02/14/2023 11:3 3 AM CDT 02/14/2023 11:34 AM CDT Gavin Thorne MD LAB - CHEMISTRY [facility] Performing Organization Address [facility] Co de Phone Number [facility] [address] [place] [address] * ENDOSCOPY, COLON, SCREENING (02/26/2021 8:15 AM CDT) Report Endoscopy POC Endoscopy Department Report _ Patient Name: Aspen Yuan Procedure Date: 02/26/2021 8:15 AM Date of : 1950 Classification: Outpatient Gender: Female Ethnicity: Not or Race: White _ Providers: Nikki Cali MD, Beverly Huynh (Fellow) Referring MD: Dirk Sheffield (Referring MD) Procedure: Colonoscopy Indications: High risk colon cancer surveillance: Personal history of colonic polyps Medications: Propofol per Anesthesia Description of Procedure: Pre-Anesthesia Assessment: - Prior to the procedure, a History and Physical was performed, and patient medications and allergies were reviewed. The patient's tolerance of previous anesthesia was also reviewed. The risks and benefits of the procedure and the sedation options and risks were discussed with the patient. All questions were answered, and informed consent was obtained. Prior Anticoagulants: The patient has taken no previous anticoagulant or antiplatelet agents. ASA Grade Assessment: III - A patient with severe systemic disease. After reviewing the risks and benefits, the patient was deemed in satisfactory condition to undergo the procedure. After I obtained informed consent, the scope was passed under direct vision. Throughout the procedure, the patient's blood pressure, pulse, and oxygen saturations were monitored continuously. The [id number] was introduced through the anus and advanced to the cecum, identified by appendiceal orifice and ileocecal valve. The colonoscopy was performed with ease. The patient tolerated the procedure well. The quality of the bowel preparation was evaluated using the BBPS ([place] Bowel Preparation Scale) with scores of: Right Colon = 3 (entire mucosa seen well with no residual staining, small fragments of stool or opaque liquid), Transverse Colon = 2 (minor amount of residual staining, small fragments of stool and/or opaque liquid, but mucosa seen well) and Left Colon = 3 (entire mucosa seen well with no residual staining, small fragments of stool or opaque liquid). The total BBPS score equals 8. The quality of the bowel preparation was good. The ileocecal valve, appendiceal orifice, and rectum were photographed. Findings: The perianal and digital rectal examinations were normal. A 5 mm polyp was found in the cecum. The polyp was sessile. The polyp was removed with a jumbo cold forceps. Resection and retrieval were complete. A 4 mm polyp was found in the transverse colon. The polyp was sessile. The polyp was removed with a jumbo cold forceps. Resection and retrieval were complete. Non-bleeding external hemorrhoids were found during retroflexion. The hemorrhoids were mild. A few small-mouthed diverticula were found in the sigmoid colon and descending colon. The exam was otherwise without abnormality on direct and retroflexion views. Estimated Blood Loss: Estimated blood loss: none. Complications: No immediate complications. Impression: - One 5 mm polyp in the cecum, removed with a jumbo cold forceps. Resected and retrieved. - One 4 mm polyp in the transverse colon, removed with a jumbo cold forceps. Resected and retrieved. - Non-bleeding external hemorrhoids. - Diverticulosis in the sigmoid colon and in the descending colon. - The examination was otherwise normal on direct and retroflexion views. Recommendation: - Patient has a contact number available for emergencies. The signs and symptoms of potential delayed complications were discussed with the patient. Return to normal activities tomorrow. Written discharge instructions were provided to the patient. - High fiber diet for the rest of the patient's life. - Patient has a contact number available for emergencies. The signs and symptoms of potential delayed complications were discussed with the patient. Return to normal activities tomorrow. Written discharge instructions were provided to the patient. - Continue present medications. - Await pathology results. - Repeat colonoscopy date to be determined after pending pathology results are reviewed for surveillance based on pathology results. - Return to GI clinic as previously scheduled. Attending Participation: I personally performed the entire procedure. Procedure Code(s): --- Professional --- 65930, Colonoscopy, flexible; with biopsy, single or multiple Diagnosis Code(s): --- Professional --- Z86.010, Personal history of colonic polyps K63.5, Polyp of colon K64.4, Residual hemorrhoidal skin tags K57.30, Diverticulosis of large intestine without perforation or abscess without bleeding CPT copyright 2019 [employer]. All rights reserved. The codes documented in this report are preliminary and upon cook railroad review may be revised to meet current compliance requirements. ____ Nikki Cali MD 02/26/2021 8:50:44 AM Note Initiated On: 02/26/2021 8:15 AM Number of Addenda: [address] 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) Prescribed Drug Tramadol [facility]) Creatinine Urine 80.8 > or = 20.0 mg/dL [facility] pH Urine 6.32 4.5 - 9.0 [facility]) Oxidant NEGATIVE <200 mcg/mL [facility]) Amphetamines NEGATIVE <500 ng/mL [facility]) Amphetamines [facility] CON[facility]ENT [facility]) Barbiturates Screen Urine NEGATIVE <300 ng/mL [facility]) Barbituates [facility] CONSISTENT [facility] ([facility]) Benzodiazepine Screen Urine NEGATIVE CONFIRMED <100 ng/mL [facility]) Alpha Hydroxyprazolam NEGATIVE <25 ng/mL [facility]) Alpha-Hydroxyalprazolam [facility] CONSIST[facility]) Alpha-Hydroxymidazolam NEGATIVE <50 ng/mL [facility]) aOH midazolam [facility] CONSIST[facility]) Alpha-hydroxytriazolam Urine NEGATIVE <50 ng/mL [facility]) Alpha-Hydroxytriazolam [facility] CONSISTENT [facility]) Aminoclonazepam NEGATIVE <25 ng/mL [facility]) Aminoclonazepam [facility] CONSISTENT [facility] ([facility]) Hydroxyethylflurazepam NEGATIVE <50 ng/mL [facility]) OH Et Flurazepam [facility] CONSISTENT [facility]) Lorazepam Quantitiative Urine NEGATIVE <50 ng/mL [facility]) Lorazepam [facility] ) Nordiazepam NEGATIVE <50 ng/mL [facility]) Nordiazepam [facility] CONSIST[facility] ([facility]) Oxazepam Quantitative Urine NEGATIVE <50 ng/mL [facility]) Oxazepam [facility] CONSIST[facility]) Temazepam Quantitative Urine NEGATIVE <50 ng/mL [facility]) Temazepam [facility] CONSIST[facility] ) Marijuana Metabolites (20 ng/mL) NEGATIVE <20 ng/mL [facility]) Marijuana [facility] ) Cocaine Metabolites Urine NEGATIVE <150 ng/mL [facility]) Cocaine Metabolites [facility]) Methadone NEGATIVE <100 ng/mL [facility]) Methadone [facility] CON[facility] ) Opiates Urine NEGATIVE CONFIRMED <100 ng/mL [facility]) Codeine NEGATIVE <50 ng/mL [facility]) Codeine [facility] CON[facility]ST[facility]) Hydrocodone NEGATIVE <50 ng/mL [facility]) Hydrocodone [facility] CONSISTENT [facility] ([facility]) Hydromorphone NEGATIVE <50 ng/mL [facility]) Hydromorphone [facility] CONSISTENT [facility]) Morphine NEGATIVE <50 ng/mL [facility]) Morphine [facility] CONSIST[facility]) Norhydrocodone NEGATIVE <50 ng/mL [facility]) Norhydrocodone [facility] CON[facility]) Oxycodone NEGATIVE <100 ng/mL [facility]) Oxycodone [facility] CON[facility]ST[facility] ) Phencyclidine Urine NEGATIVE <25 ng/mL [facility]) Phencyclidine [facility] CONSISTENT [facility]) See Note [facility]) Comment: This drug testing is for medical treatment only. Analysis was performed as non-forensic testing and these results should be used only by healthcare providers to render diagnosis or treatment, or to monitor progress of medical conditions. medMATCH comments are: - present when drug test results may be the result of metabolism of one or more drugs or when results are inconsistent with prescribed medication(s) listed. - may be blank when drug results are consistent with prescribed medication(s) listed. For assistance with interpreting these drug results, please contact a [employer] Toxicology Specialist: [phone] ( ), M-F, 8am-6pm EST. 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 06/07/2017 10:26 AM SHOE REPAIRER APPRENTICE Queta Wyatt MD LAB - URINE CHEMISTR Y ORDERABLES NESHA SLY) [address] from Last 3 Months or Most Recently Relevant to Health Maintenance Insurance Payer Benefit Plan / Group Subscriber ID Effective Dates Phone Address Type AETNA AETNA MEDICARE ADV PPO/HMO/PFFS [id number] 06/20/2022-Pres ent [address] [place] [address] Medicare-Man aged Care AETNA AETNA MEDICARE ADV PPO/HMO/PFFS [id number] 06/20/2022-Pres ent [address] [place] [address] Medicare-Man aged Care AETNA AETNA MEDICARE ADV PPO/HMO/PFFS [id number] 06/20/2022-Pres ent [address] [place] [address] Medicare-Man aged Care AETNA AETNA MEDICARE ADV PPO/HMO/PFFS [id number] 06/20/2022-Pres ent [address] [place] [address] Medicare-Man aged Care AETNA AETNA MEDICARE ADV PPO/HMO/PFFS [id number] 06/20/2022-Pres ent [address] [place] [address] Medicare-Man aged Care AETNA AETNA MEDICARE ADV PPO/HMO/PFFS [id number] 06/20/2022-Pres ent [address] [place] [address] Medicare-Man aged Care AETNA AETNA MEDICARE ADV PPO/HMO/PFFS [id number] 06/20/2022-Pres ent [address] [place] [address] Medicare-Man aged Care AETNA AETNA MEDICARE ADV PPO/HMO/PFFS [id number] 06/20/2022-Pres ent [address] [place] [address] Medicare-Man aged Care AETNA MEDICARE ADV AETNA MEDICARE ADV HMO/PPO/PFFS [id number] 06/20/2023-Pres ent [address] [place] [address] Medicare-Man aged Care AETNA AETNA MEDICARE ADV PPO/HMO/PFFS [id number] 06/20/2022-Pres ent [address] [place] [address] Medicare-Man aged Care AETNA AETNA MEDICARE ADV PPO/HMO/PFFS [id number] 06/20/2022-Pres ent [address] [place] [address] Medicare-Man aged Care AETNA AETNA MEDICARE ADV PPO/HMO/PFFS [id number] 06/20/2022-Pres ent [address] [place] [address] Medicare-Man aged Care MEDICARE WPS MEDICARE PART B [id number] 12/18/2016-Pres ent [address] [address] [place] [address] Medicare MEDICARE WPS MEDICARE PART B [id number] 12/18/2016-Pres ent [address] [address] [place] [address] Medicare AETNA AETNA MEDICARE ADV PPO/HMO/PFFS [id number] 06/20/2022-Pres ent [address] [place] [address] Medicare-Man aged Care AETNA AETNA MEDICARE ADV PPO/HMO/PFFS [id number] 06/20/2022-Pres ent [address] [place] [address] Medicare-Man aged Care AETNA AETNA MEDICARE ADV PPO/HMO/PFFS [id number] 06/20/2022-Pres ent [address] [place] [address] Medicare-Man aged Care AETNA AETNA MEDICARE ADV PPO/HMO/PFFS [id number] 06/20/2022-Pres ent [address] [place] [address] Medicare-Man aged Care AETNA AETNA MEDICARE ADV PPO/HMO/PFFS [id number] 06/20/2022-Pres ent [address] [place] [address] Medicare-Man aged Care AETNA AETNA MEDICARE ADV PPO/HMO/PFFS [id number] 06/20/2022-Pres ent [address] [place] [address] Medicare-Man aged Care AETNA AETNA MEDICARE ADV PPO/HMO/PFFS [id number] 06/20/2022-Pres ent [address] [place] [address] Medicare-Man aged Care AETNA AETNA MEDICARE ADV PPO/HMO/PFFS [id number] 06/20/2022-Pres ent [address] [place] [address] Medicare-Man aged Care AETNA AETNA MEDICARE ADV PPO/HMO/PFFS [id number] 06/20/2022-Pres ent [address] [place] [address] Medicare-Man aged Care AETNA AETNA MEDICARE ADV PPO/HMO/PFFS [id number] 06/20/2022-Pres ent [address] [place] [address] Medicare-Man aged Care AETNA AETNA MEDICARE ADV PPO/HMO/PFFS [id number] 06/20/2022-Pres ent [address] [place] [address] Medicare-Man aged Care AETNA AETNA MEDICARE ADV PPO/HMO/PFFS [id number] 06/20/2022-Pres ent [address] [place] [address] Medicare-Man aged Care AETNA AETNA MEDICARE ADV PPO/HMO/PFFS [id number] 06/20/2022-Pres ent [address] [place] [address] Medicare-Man aged Care AETNA AETNA MEDICARE ADV PPO/HMO/PFFS [id number] 06/20/2022-Pres ent [address] [place] [address] Medicare-Man aged Care AETNA AETNA MEDICARE ADV PPO/HMO/PFFS [id number] 06/20/2022-Pres ent [address] [place] [address] Medicare-Man aged Care AETNA AETNA MEDICARE ADV PPO/HMO/PFFS [id number] 06/20/2022-Pres ent [address] [place] [address] Medicare-Man aged Care AETNA AETNA MEDICARE ADV HMO/PPO [id number] 06/20/2019-Pres ent [address] [place] [address] Medicare-Man aged Care AETNA AETNA MEDICARE ADV HMO/PPO [id number] 06/20/2019-Pres ent [address] [place] [address] Medicare-Man aged Care AETNA AETNA MEDICARE ADV HMO/PPO [id number] 06/20/2019-Pres ent [address] [place] [address] Medicare-Man aged Care AETNA AETNA MEDICARE ADV HMO/PPO [id number] 06/20/2019-Pres ent [address] [place] [address] Medicare-Man aged Care AETNA AETNA MEDICARE ADV HMO/PPO [id number] 06/20/2019-Pres ent [address] [place] [address] Medicare-Man aged Care AETNA AETNA MEDICARE ADV HMO/PPO [id number] 06/20/2019-Pres ent [address] [place] [address] Medicare-Man aged Care AETNA AETNA MEDICARE ADV HMO/PPO [id number] 06/20/2019-Pres ent [address] [place] [address] Medicare-Man aged Care AETNA AETNA MEDICARE ADV HMO/PPO [id number] 06/20/2019-Pres ent [address] [place] [address] Medicare-Man aged Care Care Teams Recenterer Relationship Specialty Start Date End Date Norma Caputo [facility] [place], [place] [id number] PCP - General 03/06/24 Speedy Fall MD [address] [place] [address] Juke Box Mechanic Gastroenterology 09/08/23
--- OUTSIDE RECORDS SUMMARY | 2024-09-10 18:08 | XMS_ITS | Clinical Summary ---
Author Organization [facility] Address [address] [place] [address] Care Team Providers Care Billing Manager Name Role Phone Unavailable Primary Care Provider Unavailabl e Social History Tobacco Use Types Packs/Day Years Used Date Smoking Tobacco: Never Assessed Comments Unknown Sex and Gender Information Value Date Recorded Sex Assigned at Not on file Legal Sex Female 4:59 PM CDT Gender Identity Not on file Sexual Orientation Not on file Plan of Treatment Health Maintenance Due Date Last Done Comments Colorectal Cancer Screening Colonoscopy (10 Years) 1950 Hepatitis C 1969 DTaP, Tdap and Td Vaccines ( 1 - Tdap) 1970 Mammogram Screening 1991 Zoster Vaccines (1 of 2) 2001 Dexa Scan (General) 2016 Pneumococcal Vaccine: 65+ Ye ars (1 of 1 - PCV) 2016 COVID-19 Vaccine (2023-2 5 season) 2024 Influenza Adult (#1) 2024 RSV Immunization or 60+ Years (1 - 1-dose 75+ series) 2026 Meningococcal B Vaccine Aged Out No l onger eligible based on patient's age to complete this topic Meningococcal Vaccine Aged Out No dean kirsten eligible based on patient's age to complete this topic RSV Immunizations Under 20 Months Aged Out No longer eligible based on patient's age to complete this topic
--- OUTSIDE RECORDS SUMMARY | 2024-09-10 18:08 | XMS_ITS | Encounter Summary ---
Author Organization [facility] Address 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
== END 2024-09-10 15:18 | disposition home or self-care (01) ==
PROVIDERS: PCP Nurse Practitioner; Visit Provider Nurse Practitioner Women's Health
DX: Z12.31 Encounter for screening mammogram for malignant neoplasm of breast (principal)
CPT/HCPCS: 77063; 77067